=== PATIENT | male | born 1965 | race Caucasian/White ===

== ENCOUNTER 2020-01-09 08:10 | Outpatient (CLI) | payer BC, SELFPAY | END 2020-01-09 08:11 | disposition home or self-care (01) | PROVIDERS: PCP Internal Medicine | DX: K50.919 Crohn's disease, unspecified, with unspecified complications (principal); Z79.899 Other long term (current) drug therapy | CPT/HCPCS: 36415; 83993 ==

== ENCOUNTER 2020-02-15 10:31 | Emergency (ER) | payer OTHER, SELFPAY ==
--- NOTE | ~2020-02-15 | XR_ITS ---
EXAMINATION: XR shoulder LT min 2V INDICATION: Left shoulder pain TECHNIQUE: Four views of the left shoulder are submitted. COMPARISON: None FINDINGS: Normal alignment. No fracture. There is mild glenohumeral and acromioclavicular joint osteo arthritis. Soft tissues are unremarkable. IMPRESSION: No acute osseous abnormality. Reviewed, dictated and finalized at location B.
--- NOTE | ~2020-02-15 | XR_ITS ---
EXAMINATION: XR lumbar spine 2-3V DATE: 02/15/2020 11:31 INDICATION: Low back pain TECHNIQUE: Anteroposterior and lateral views of the lumbar spine, and cone-down lateral view of the l umbosacral junction were obtained. COMPARISON: CT, 11/26/2017 FINDINGS: There is chronic grade 1 anterolisthesis of L5 on S1 with bilateral L5 pars defects noted. There is moderate, chronic loss of intervertebral disc space height at L5-S1. The vertebral body heig hts are normal. There is no fracture. Small degenerative osteophytes project from the anterior endpla jacqueline of multiple vertebral bodies. IMPRESSION: 1. No acute findings. 2. Bilateral L5 pars defects with chronic grade 1 anterolisthesis of L5 on S1. Reviewed, dictated and finalized at location B.
[2020-02-15 10:35] VITALS: BP 138/86; PULSE 80; RESP 18; TEMP 37; O2SAT 98
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
--- NOTE | 2020-02-15 11:35 | PC.NURSE ---
report to CASSANDRA Moore.
== END 2020-02-15 12:21 | disposition home or self-care (01) ==
PROVIDERS: Emergency Provider Emergency Medicine
DX: T14.8XXA Other injury of unspecified body region, initial encounter (principal); S39.012A Strain of muscle, fascia and tendon of lower back, initial encounter; V89.2XXA Person injured in unspecified motor-vehicle accident, traffic, initial encounter
CPT/HCPCS: 72100; 73030; 99283; 99284

== ENCOUNTER 2020-04-09 08:25 | Outpatient (CLI) | payer OTHER, SELFPAY ==
--- NOTE | ~2020-04-09 | XR_ITS ---
EXAMINATION: XR lumbar spine 6V w bending DATE: 04/09/2020 08:49 INDICATION: Fascial strain of the lower back. TECHNIQUE: Anteroposterior, lateral in neutral, flexion and extension, and bilateral oblique views of the lumbar spine and cone-down AP and lateral views of the lumbosacral junction were obtained]. COMPARISON: Lumbar spine radiographs dated 02/15/[address] pelvis dated 11/26/2017 FINDINGS: L5 spondylolysis with bilateral chronic pars interarticularis defects and with 5 mm anterolisthesis L 5 on S1. The posterior margin of the L5 vertebral body is poorly visualized on the flexion and extens ion views but based upon the more well-defined anterior margin of the vertebral body the degree of an terolisthesis appears to increase to approximately 8-9 mm on both flexion and extension. 2 mm retroli sthesis L2 on L3 which is unchanged with flexion and increases to 3 mm with extension. Vertebral body heights are normal. Moderate disc height loss at L5-S1 and mild disc height loss at L2-L3. Multileve l mild lumbar facet osteoarthritis. IMPRESSION: 1. L5 spondylolysis with grade 1 anterolisthesis which increases slightly with both flexion and exten marcos. 2. Mild lumbar spondylosis. Reviewed, dictated and finalized at location A. IMPRESSION: 1. L5 spondylolysis with grade 1 anterolisthesis which increases slightly with both flexion and extension. 2. Mild lumbar spondylosis.
== END 2020-04-09 08:26 | disposition home or self-care (01) ==
LOC: CHSIMG 08:28
PROVIDERS: PCP Internal Medicine; Visit Provider Internal Medicine
DX: S39.012A Strain of muscle, fascia and tendon of lower back, initial encounter (principal)
CPT/HCPCS: 72114

== ENCOUNTER 2021-04-15 08:48 | Outpatient (CLI) | payer BC, SELFPAY ==
[2021-04-15 09:11] LABS: Creatinine Urine 71.35 mg/dL (40-278); MALB Creatinine Ratio 18.2 mg/g (0-30); Microalbumin Urine Random < 13.0 mg/L
[2021-04-15 09:32] LABS: Hemoglobin A1C 6.8 % (<5.7)
[2021-04-15 10:07] LABS: Cholesterol 154 mg/dL (0-200); HDL Direct 68 mg/dL (40-60); LDL Cholesterol Calculated 55 mg/dL (<130); Prostate Specific Antigen 0.3 ng/mL (< OR = 4.0); Thyroid Stimulating Hormone 1.28 uIU/mL (0.36-3.74); Triglycerides 156 mg/dL (0-150)
== END 2021-04-15 08:49 | disposition home or self-care (01) ==
PROVIDERS: PCP Physician Assistant; Visit Provider Physician Assistant
DX: E11.9 Type 2 diabetes mellitus without complications (principal); R53.83 Other fatigue; Z12.5 Encounter for screening for malignant neoplasm of prostate
CPT/HCPCS: 36415; 80061; 82043; 83036; 84153; 84443; G0103

== ENCOUNTER 2021-10-05 10:40 | Outpatient (CLI) | payer BC, SELFPAY ==
[2021-10-05 11:05] LABS: Hemoglobin A1C 6.9 % (<5.7)
[2021-10-09 17:24] LABS: Testosterone Total 162 ng/dL (250-1100)
== END 2021-10-05 10:41 | disposition home or self-care (01) ==
LOC: CHSLAB 10:42
PROVIDERS: PCP Physician Assistant; Visit Provider Physician Assistant
DX: E29.1 Testicular hypofunction (principal); E11.9 Type 2 diabetes mellitus without complications
CPT/HCPCS: 36415; 83036; 84402; 84403

== ENCOUNTER 2021-11-20 08:49 | Outpatient (CLI) | payer BC, SELFPAY ==
[2021-11-20 09:24] LABS: Hematocrit 45.1 % (40.0-54.0); Hemoglobin 14.9 g/dL (14.0-18.0)
[2021-11-22 11:22] LABS: Testosterone Total 124 ng/dL (250-1100)
[2021-11-23 08:07] LABS: FSH 8.4 mIU/mL (1.6-8.0); LH 3.4 mIU/mL (1.5-9.3); Prolactin 6.5 ng/mL (***)
[2021-11-24 13:16] LABS: Estradiol, Ultrasensitive 11 pg/mL (< OR = 29)
== END 2021-11-20 08:50 | disposition home or self-care (01) ==
LOC: CHSLAB 08:51
PROVIDERS: PCP Physician Assistant; Visit Provider Urology
DX: E29.1 Testicular hypofunction (principal)
CPT/HCPCS: 36415; 82670; 83001; 83002; 84146; 84403; 85014; 85018

== ENCOUNTER 2021-12-22 12:32 | Outpatient (CLI) | payer BC, SELFPAY ==
--- NOTE | ~2021-12-22 | MR_ITS ---
EXAMINATION: MR shoulder LT wo con DATE: 12/22/2021 13:35 INDICATION: Left shoulder pain. TECHNIQUE: Magnetic resonance imaging (MRI) of the left shoulder was performed without intravenous co ntrast. Sequences included axial PD-weighted FS FSE, coronal oblique PD-weighted FS FSE and T2-weight ed FS FSE, and sagittal oblique T2-weighted FS FSE and T1-weighted FSE. COMPARISON: Left shoulder radiographs 02/15/2020 FINDINGS: Coracoacromial arch: The acromion undersurface is curved in morphology (type II). There is severe acromioclavicular joint osteoarthritis. There is severe subacromial/subdeltoid bursitis. Rotator cuff: There is a full-thickness tear of supraspinatus and infraspinatus tendons measuring 4.5 cm anterior t o posterior by 5.0 cm proximal to distal. Teres minor tendon is normal. There is severe subscapularis tendinopathy. There is mild fatty atrophy of teres minor muscle belly. There is increased T2-weighte d signal intensity and teres minor muscle belly, consistent with subacute on chronic denervation. Biceps tendon and glenoid labrum: Biceps tendon is in bicipital groove. There is moderate intra-articular biceps tendinopathy. There is extensive tearing of the glenoid labrum. Fluid: There is a moderate-sized glenohumeral joint effusion. Bones/cartilage: There is posterior subluxation of humeral head with respect to glenoid. There is shallow partial-thic kness cartilage loss of humeral head and glenoid. IMPRESSION: 1. Massive full-thickness rotator cuff tear. 2. Mild glenohumeral joint chondrosis. 3. Severe acromioclavicular joint osteoarthritis. 4. Moderate intra-articular biceps tendinopathy. 5. Moderate-sized glenohumeral joint effusion and severe subacromial/subdeltoid bursitis. Reviewed, dictated and finalized at location A. 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
== END 2021-12-22 12:33 ==
PROVIDERS: Visit Provider Orthopaedic Surgery
DX: M19.012 Primary osteoarthritis, left shoulder (principal); M75.102 Unspecified rotator cuff tear or rupture of left shoulder, not specified as traumatic; M25.412 Effusion, left shoulder
CPT/HCPCS: 73221

== ENCOUNTER 2022-04-11 11:45 | Outpatient (CLI) | payer BC, SELFPAY ==
[2022-04-11 12:07] LABS: Basophils Absolute Auto 0.11 K/mm3 (0.00-0.10); Eosinophils Absolute Auto 0.44 K/mm3 (0.02-0.50); Hematocrit 41.5 % (40.0-54.0); Hemoglobin 13.4 g/dL (14.0-18.0); Immature Granulocyte Absolute 0.09 K/mm3 (0.00-0.00); Immature Granulocyte Percent A 0.8 % (0.0-0.0); Lymphocytes Absolute Auto 2.18 K/mm3 (1.10-4.50); Lymphocytes Percent Auto 19.7 % (18.0-42.0); Mean Corpuscular HGB Conc 32.3 g/dL (32.0-36.0); Mean Corpuscular Hemoglobin 30.2 pg (27.0-31.0); Mean Corpuscular Volume 93.5 fL (78.0-102.0); Mean Platelet Volume 10.1 fl (8.7-11.0); Monocytes Absolute Auto 0.64 K/mm3 (0.10-0.90); Monocytes Percent Auto 5.8 % (2.0-11.0); Neutrophils Absolute Auto 7.6 K/mm3 (1.7-7.2); Neutrophils Percent Auto 68.7 % (50.0-70.0); Platelet Count Result 327 K/mm3 (150-420); Red Blood Count 4.44 M/mm3 (4.70-6.10); Red Cell Distribution Width 13.2 % (11.6-14.4); White Blood Count 11.1 K/mm3 (4.8-10.8)
[2022-04-11 12:54] LABS: Alanine Aminotransferase 23 U/L (16-63); Albumin Level 3.1 g/dL (3.4-5.0); Alkaline Phosphatase 146 U/L (46-116); Anion Gap 6 mmol/L (8-16); Aspartate Amino Transferase 10 U/L (15-37); Bilirubin,Total 0.4 mg/dL (0.00-1.00); Blood Urea Nitrogen 21 mg/dL (7-18); CRP 3.2 mg/dL (0.0-0.9); Calcium 8.4 mg/dL (8.5-10.1); Carbon Dioxide 33 mmol/L (21-32); Chloride 97 mmol/L (98-108); Estimated Glomerular Filt Rate 58; Glucose 303 mg/dL (70-99); Osmolality Calculated 296 mOsm/kg (285-295); Potassium 3.7 mmol/L (3.5-5.1); Sodium 136 mmol/L (136-145); Total Protein 6.4 g/dL (6.4-8.2)
[2022-04-11 13:11] LABS: Erythrocyte Sedimentation Rate 12 mm/hr (0-20)
[2022-04-16 05:42] LABS: Prealbumin 24 mg/dL (21-43)
== END 2022-04-11 11:46 | disposition home or self-care (01) ==
LOC: CHSLAB 11:55
PROVIDERS: PCP Orthopaedic Surgery; Visit Provider Orthopaedic Surgery
DX: M54.16 Radiculopathy, lumbar region (principal)
CPT/HCPCS: 36415; 80053; 84134; 85025; 85652; 86140

== ENCOUNTER 2022-04-25 11:05 | Outpatient (CLI) | payer BC, SELFPAY ==
[2022-04-25 11:22] LABS: Basophils Absolute Auto 0.05 K/mm3 (0.00-0.10); Basophils Percent Auto 0.5 % (0.0-1.0); Eosinophils Absolute Auto 0.22 K/mm3 (0.02-0.50); Eosinophils Percent Auto 2.1 % (1.0-6.0); Hematocrit 41.6 % (40.0-54.0); Hemoglobin 13.6 g/dL (14.0-18.0); Immature Granulocyte Absolute 0.05 K/mm3 (0.00-0.00); Immature Granulocyte Percent A 0.5 % (0.0-0.0); Lymphocytes Absolute Auto 1.69 K/mm3 (1.10-4.50); Lymphocytes Percent Auto 16.2 % (18.0-42.0); Mean Corpuscular HGB Conc 32.7 g/dL (32.0-36.0); Mean Corpuscular Hemoglobin 30.1 pg (27.0-31.0); Mean Platelet Volume 10.1 fl (8.7-11.0); Monocytes Absolute Auto 0.77 K/mm3 (0.10-0.90); Monocytes Percent Auto 7.4 % (2.0-11.0); Neutrophils Absolute Auto 7.7 K/mm3 (1.7-7.2); Neutrophils Percent Auto 73.3 % (50.0-70.0); Platelet Count Result 200 K/mm3 (150-420); Red Blood Count 4.52 M/mm3 (4.70-6.10); Red Cell Distribution Width 13.5 % (11.6-14.4); White Blood Count 10.4 K/mm3 (4.8-10.8)
[2022-04-25 12:29] LABS: Erythrocyte Sedimentation Rate 32 mm/hr (0-20)
[2022-04-25 12:40] LABS: Alanine Aminotransferase 20 U/L (16-63); Albumin Level 3.1 g/dL (3.4-5.0); Alkaline Phosphatase 109 U/L (46-116); Anion Gap 7 mmol/L (8-16); Aspartate Amino Transferase < 10 U/L (15-37); Bilirubin,Total 1.4 mg/dL (0.00-1.00); Blood Urea Nitrogen 15 mg/dL (7-18); Calcium 8.8 mg/dL (8.5-10.1); Carbon Dioxide 31 mmol/L (21-32); Chloride 98 mmol/L (98-108); Estimated Glomerular Filt Rate 55; Glucose 220 mg/dL (70-99); Osmolality Calculated 289 mOsm/kg (285-295); Potassium 3.4 mmol/L (3.5-5.1); Sodium 136 mmol/L (136-145); Total Protein 6.5 g/dL (6.4-8.2)
[2022-04-25 12:43] LABS: CRP > 10.6 mg/dL (0.0-0.9)
[2022-04-27 10:56] LABS: Prealbumin 17 mg/dL (21-43)
== END 2022-04-25 11:06 | disposition home or self-care (01) ==
LOC: CHSLAB 11:10
PROVIDERS: PCP Physician Assistant
DX: M43.28 Fusion of spine, sacral and sacrococcygeal region (principal)
CPT/HCPCS: 36415; 80053; 84134; 85025; 85652; 86140

== ENCOUNTER 2022-12-28 10:46 | Outpatient (CLI) | payer OTHER, SELFPAY ==
[2022-12-28 11:12] LABS: Basophils Absolute Auto 0.06 K/mm3 (0.00-0.10); Basophils Percent Auto 0.8 % (0.0-1.0); Eosinophils Absolute Auto 0.09 K/mm3 (0.02-0.50); Eosinophils Percent Auto 1.1 % (1.0-6.0); Hematocrit 44.5 % (40.0-54.0); Immature Granulocyte Absolute 0.05 K/mm3 (0.00-0.00); Immature Granulocyte Percent A 0.6 % (0.0-0.0); Lymphocytes Absolute Auto 2.25 K/mm3 (1.10-4.50); Lymphocytes Percent Auto 28.4 % (18.0-42.0); Mean Corpuscular HGB Conc 33.7 g/dL (32.0-36.0); Mean Platelet Volume 11.4 fl (8.7-11.0); Monocytes Percent Auto 6.3 % (2.0-11.0); Neutrophils Percent Auto 62.8 % (50.0-70.0); Platelet Count Result 224 K/mm3 (150-420); Red Cell Distribution Width 13.3 % (11.6-14.4); White Blood Count 7.9 K/mm3 (4.8-10.8)
[2022-12-28 11:43] LABS: CRP < 0.5 mg/dL (0.0-0.9)
[2022-12-28 12:20] LABS: Erythrocyte Sedimentation Rate 1 mm/hr (0-20)
[2023-01-02 19:59] LABS: Prealbumin 29 mg/dL (21-43)
== END 2022-12-28 10:47 | disposition home or self-care (01) ==
LOC: CHSLAB 10:52
PROVIDERS: PCP Physician Assistant; Visit Provider Orthopaedic Surgery
DX: M43.26 Fusion of spine, lumbar region (principal)
CPT/HCPCS: 36415; 84134; 85025; 85652; 86140

== ENCOUNTER 2023-05-10 08:16 | Outpatient (CLI) | payer BC, SELFPAY ==
[2023-05-10 08:59] LABS: Creatinine Urine 252.29 mg/dL (40-278); MALB Creatinine Ratio 5.1 mg/g (0-30); Microalbumin Urine Random < 13.0 mg/L
[2023-05-10 09:02] LABS: Hemoglobin A1C 6.9 % (<5.7)
[2023-05-10 09:44] LABS: Alanine Aminotransferase 45 U/L (16-63); Albumin Level 3.9 g/dL (3.4-5.0); Alkaline Phosphatase 89 U/L (46-116); Anion Gap 11 mmol/L (8-16); Aspartate Amino Transferase 17 U/L (15-37); Bilirubin,Total 0.6 mg/dL (0.00-1.00); Blood Urea Nitrogen 21 mg/dL (7-18); Calcium 9.1 mg/dL (8.5-10.1); Carbon Dioxide 29 mmol/L (21-32); Chloride 102 mmol/L (98-108); Cholesterol 141 mg/dL (0-200); Estimated Glomerular Filt Rate > 60; Glucose 142 mg/dL (70-99); HDL Direct 67 mg/dL (40-60); LDL Cholesterol Calculated 46 mg/dL (<130); Osmolality Calculated 299 mOsm/kg (285-295); Potassium 4.2 mmol/L (3.5-5.1); Sodium 142 mmol/L (136-145); Total Protein 7.4 g/dL (6.4-8.2); Triglycerides 140 mg/dL (0-150)
[2023-05-10 09:48] LABS: Prostate Specific Antigen < 0.1 ng/mL (< OR = 4.0)
== END 2023-05-10 08:17 | disposition home or self-care (01) ==
LOC: CHSLAB 08:19
PROVIDERS: PCP Physician Assistant; Visit Provider Physician Assistant
DX: R53.83 Other fatigue (principal); Z12.5 Encounter for screening for malignant neoplasm of prostate; E11.9 Type 2 diabetes mellitus without complications
CPT/HCPCS: 36415; 80053; 80061; 82043; 83036; 84153; 84443; G0103

== ENCOUNTER 2023-07-24 12:17 | Outpatient (CLI) | payer BC, SELFPAY ==
[2023-07-24 13:15] LABS: SARS-CoV-2 RNA PCR Negative (Negative)
== END 2023-07-24 12:18 | disposition home or self-care (01) ==
PROVIDERS: PCP Physician Assistant; Visit Provider Physician Assistant
DX: R06.02 Shortness of breath (principal)
CPT/HCPCS: 87635

== ENCOUNTER 2023-12-04 11:44 | Outpatient (CLI) | payer BC, SELFPAY ==
--- NOTE | ~2023-12-04 | XR_ITS ---
Clinical Indication: Preoperative clearance PA and lateral views of the chest: Comparison: None Findings: The lungs are clear, without evidence of focal consolidation or pleural effusion. Cardiome diastinal silhouette is within normal limits. Bones and soft tissues are unremarkable. Impression: Normal chest. Reviewed, dictated and finalized at location . 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
--- NOTE | 2023-12-04 11:59 | ECG_ITS ---
Measurements Intervals [place] Rate: 70 P: 16 IN: 200 QRS: 48 QRSD: 125 T: 13 QT: 424 QTc: 460 Interpretive Statements SINUS RHYTHM BORDERLINE AV CONDUCTION DELAY RIGHT BUNDLE BRANCH BLOCK BASELINE WANDER- I, III, V3, V5-V6 ABNORMAL ECG NO PREVIOUS ECG AVAILABLE FOR COMPARISON Electronically Signed On 12-04-2023 12:19:23 CERTIFIED EMERGENCY VEHICLE TECHNICIAN by Steven Cruz D.O.
[2023-12-04 12:04] LABS: Basophils Absolute Auto 0.1 K/mm3 (0.0-0.1); Basophils Percent Auto 0.8 % (0.2-1.2); Eosinophils Absolute Auto 0.2 K/mm3 (0-0.3); Eosinophils Percent Auto 2.1 % (0-4.4); Hematocrit 44.5 % (42.0-52.0); Hemoglobin 14.7 g/dL (14.0-18.0); Immature Granulocyte Absolute 0.05 K/mm3 (0.00-0.031); Immature Granulocyte Percent A 0.6 % (0-0.5); Lymphocytes Absolute Auto 2.93 K/mm3 (0.9-3.2); Lymphocytes Percent Auto 33.4 % (18.3-44.2); Mean Corpuscular Hemoglobin 30.6 pg (26-34); Mean Corpuscular Volume 92.5 fl (80-100); Mean Platelet Volume 10.3 fl (7.4-10.4); Monocytes Absolute Auto 0.6 K/mm3 (0.1-0.6); Monocytes Percent Auto 6.5 % (2.6-8.5); Neutrophils Percent Auto 56.6 % (45.5-73.1); Platelet Count Result 218 k/mm3 (150-375); Red Blood Count 4.81 M/mm3 (4.6-6.20); Red Cell Distribution Width 13.9 % (11.5-14.5); White Blood Count 8.8 K/mm3 (4.5-10.0)
[2023-12-04 12:19] LABS: Hemoglobin A1C 8.1 % (<5.7)
[2023-12-04 12:35] LABS: Alanine Aminotransferase 27 U/L (6-50); Albumin Level 4.4 g/dL (3.5-5.1); Alkaline Phosphatase 45 U/L (38-126); Anion Gap 10 mmol/L (8-16); Aspartate Amino Transferase 23 U/L (17-59); Bilirubin,Total 0.7 mg/dL (0.2-1.3); Blood Urea Nitrogen 20 mg/dL (9-20); Calcium 8.9 mg/dL (8.4-10.2); Carbon Dioxide 28 mmol/L (22-30); Chloride 98 mmol/L (98-107); Estimated Glomerular Filt Rate > 60; Glucose 142 mg/dL (65-110); Potassium 3.8 mmol/L (3.4-5.0); Sodium 136 mmol/L (137-145)
== END 2023-12-04 11:45 | disposition home or self-care (01) ==
PROVIDERS: PCP Physician Assistant; Visit Provider Physician Assistant
DX: Z01.818 Encounter for other preprocedural examination (principal); I45.9 Conduction disorder, unspecified
CPT/HCPCS: 36415; 71046; 80053; 83036; 85025; 87081; 93005

== ENCOUNTER 2023-12-09 10:41 | Outpatient (CLI) | payer BC, SELFPAY ==
[2023-12-09 11:32] LABS: SARS-CoV-2 RNA PCR Negative (Negative)
[2023-12-09 11:35] LABS: Influenza A QL RT-PCR Positive (Negative); Influenza B QL RT-PCR Negative (Negative)
[2023-12-09 11:36] LABS: RSV RNA, RT-PCR Negative (Negative)
== END 2023-12-09 10:42 | disposition home or self-care (01) ==
LOC: CHSLAB 10:46
PROVIDERS: PCP Physician Assistant; Visit Provider Physician Assistant
DX: Z01.818 Encounter for other preprocedural examination (principal)
CPT/HCPCS: 87637

== ENCOUNTER 2024-01-21 09:02 | Outpatient (RCR) | payer OTHER, SELFPAY ==
[2024-01-21 09:00] VITALS: BP_SYST 90
--- NOTE | 2024-01-21 10:02 | OPREHPOC ---
Outpatient Therapy Plan of Care This is a Multidisciplinary Plan of Care that may contain components documented by all disciplines (PT, OT, and ST.) PT Problem 1 PT Problem #1 Knowledge Deficit PT Goal 1 Goal The patient will be independent in a home exercise program to continue after discharge from formal PT. Target Visit 24 PT Problem 2 PT Problem #2 Pain PT Goal 1 Goal The patient will report no greater than 2/10 left shoulder pain with daily activities. Target Visit 24 PT Problem 3 PT Problem #3 Impaired Range of Motion PT Goal 1 Goal The patient will demonstrate at least 140 degrees of left shoulder flexion to improve overhead reaching ability. Target Visit 24 PT Problem 4 PT Problem #4 Impaired Strength PT Goal 1 Goal The patient will demonstrate 4/5 left shoulder strength to lift and carry household items. Target Visit 24 PT Problem 5 PT Problem #5 Impaired Functional Mobil PT Goal 1 Goal The patient will self perceive less than 25% disability per the Quick DASH questionnaire. Target Visit 24
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
[2024-02-04 09:13] VITALS: BP_SYST 90
--- NOTE | 2024-02-04 09:58 | OPREHPOC ---
Outpatient Therapy Plan of Care This is a Multidisciplinary Plan of Care that may contain components documented by all disciplines (PT, OT, and ST.) PT Problem 1 PT Problem #1 Knowledge Deficit PT Goal 1 Goal The patient will be independent in a home exercise program to continue after discharge from formal PT. Target Visit 24 Progress Partially Met Comment Met to date, continue to progress PT Problem 2 PT Problem #2 Pain PT Goal 1 Goal The patient will report no greater than 2/10 left shoulder pain with daily activities. Target Visit 24 Progress Not Met Comment continue PT Problem 3 PT Problem #3 Impaired Range of Motion PT Goal 1 Goal The patient will demonstrate at least 140 degrees of left shoulder flexion to improve overhead reaching ability. Target Visit 24 Progress Not Met Comment Continue PT Problem 4 PT Problem #4 Impaired Strength PT Goal 1 Goal The patient will demonstrate 4/5 left shoulder strength to lift and carry household items. Target Visit 24 Progress Not Met Comment Continue PT Problem 5 PT Problem #5 Impaired Functional Mobil PT Goal 1 Goal The patient will self perceive less than 25% disability per the Quick DASH questionnaire. Target Visit 24 Progress Not Met Comment Continue
--- NOTE | 2024-02-04 09:58 | PTOPPROG ---
Assessment and note entered by Miroslava Martinez, PT Evaluation Information Assessment Status Progress Diagnosis s/p left reverse total shoulder arthroplasty Onset 12/16/23 Subjective Information Terence Leos reports his left shoulder is doing well overall. He does have increased pain today after trying to hold a nail with his left hand and hammering it with the right yesterday. He also reports he slept bad. Assessment PT Clinical Summary Terence Leos has completed 5 skilled PT visits since initiating PT following a right shoulder TSA performed on 12/16/23. He is reporting overall improvements in the shoulder and decreased pain however, he does have increased pain today after using it to hold a nail yesterday. He demonstrates good left shoulder AROM within restrictions and left shoulder PROM is easily to restrictions of flexion 100 degrees, abduction 90 degrees, and external rotation 30 degrees. He continues to have ROM limitations and strength limitations leading to inability to perform work tasks. He will continue to benefit from skilled PT to further address these limiations and progress as allowed by his physician. Plan of Care Interventions Electrical Stimulation,Hot Pack/Cold Pack,Patient/ Caregiver Educati,Therapeutic Exercise PT Services Indicated Yes Treatment Frequency and The patient has 3 visits left on his current Duration authorization. He will continue to benefit from skilled PT 2 times a week for 24 visits. These treatments will address the objective and functional deficits as defined above. The patient will be advanced safely and appropriately in order for the patient to progress towards his/her prior level of function. Additional exercises will be introduced and as well as a comprehensive home exercise program upon discharge, if needed, ?to ensure carryover of functional gains achieved in the clinic. This treatment plan has been reviewed and agreement upon by the patient.
[2024-02-13 09:10] VITALS: BP_SYST 90
--- NOTE | 2024-02-13 10:19 | OPREHPOC ---
Outpatient Therapy Plan of Care This is a Multidisciplinary Plan of Care that may contain components documented by all disciplines (PT, OT, and ST.) PT Problem 1 PT Problem #1 Knowledge Deficit PT Goal 1 Goal The patient will be independent in a home exercise program to continue after discharge from formal PT. Target Visit 24 Progress Partially Met Comment Met to date, continue to progress PT Problem 2 PT Problem #2 Pain PT Goal 1 Goal The patient will report no greater than 2/10 left shoulder pain with daily activities. Target Visit 24 Progress Not Met Comment continue PT Problem 3 PT Problem #3 Impaired Range of Motion PT Goal 1 Goal The patient will demonstrate at least 140 degrees of left shoulder flexion to improve overhead reaching ability. New goal: The patient will demonstrate 160 degrees of left shoulder flexion AROM. Target Visit 24 Progress Met Comment Continue PT Problem 4 PT Problem #4 Impaired Strength PT Goal 1 Goal The patient will demonstrate 4/5 left shoulder strength to lift and carry household items. Target Visit 24 Progress Not Met Comment Continue PT Problem 5 PT Problem #5 Impaired Functional Mobil PT Goal 1 Goal The patient will self perceive less than 25% disability per the Quick DASH questionnaire. The patient will demonstrate the ability to lift 50 # from floor to waist to return to job duties. Target Visit 24 Progress Not Met Comment Continue
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
--- NOTE | 2024-02-20 10:12 | PCPTNOTE ---
Cancelled session today. No auth from work comp yet.
[2024-03-10 09:15] VITALS: BP_SYST 130
--- NOTE | 2024-03-31 09:38 | PCPTNOTE ---
03/31/24: Pt cancelled today's PT for his left shoulder secondary to increased low back pain. -Miroslava Martinez, PT
--- NOTE | 2024-04-07 10:20 | PTOPPROG ---
Assessment and note entered by Miroslava Martinez, PT Evaluation Information Assessment Status Progress Diagnosis s/p L reverse total shoulder arthroplasty Onset 12/16/23 Subjective Information Terence Leos reports he will see his shoulder surgeon on 04/17/24. Assessment PT Clinical Summary Terence Leos will see Dr. De La Garza on 04/17/24. He is scheduled for PT on 04/09/24, 04/14/24, and 04/16/24 . He will be formally reassessed on 04/16/24. Plan of Care Interventions Electrical Stimulation,Hot Pack/Cold Pack,Manual Therapy,Neuro Re-education,Patient/Caregiver Educati,Therapeutic Activities,Therapeutic Exercise PT Services Indicated Yes Treatment Frequency and Continue per POC. Duration These treatments will address the objective and functional deficits as defined above. The patient will be advanced safely and appropriately in order for the patient to progress towards his/her prior level of function. Additional exercises will be introduced and as well as a comprehensive home exercise program upon discharge, if needed, ?to ensure carryover of functional gains achieved in the clinic. This treatment plan has been reviewed and agreement upon by the patient.
[2024-04-16 09:16] VITALS: BP_SYST 160
--- NOTE | 2024-04-16 10:28 | OPREHPOC ---
Outpatient Therapy Plan of Care This is a Multidisciplinary Plan of Care that may contain components documented by all disciplines (PT, OT, and ST.) PT Problem 1 PT Problem #1 Knowledge Deficit PT Goal 1 Goal The patient will be independent in a home exercise program to continue after discharge from formal PT. Target Visit 36 Progress Partially Met Comment Met to date, continue to progress PT Problem 2 PT Problem #2 Pain PT Goal 1 Goal The patient will report no greater than 2/10 left shoulder pain with daily activities. Target Visit 36 Progress Not Met Comment progressing towards, continue PT Problem 3 PT Problem #3 Impaired Range of Motion PT Goal 1 Goal The patient will demonstrate at least 140 degrees of left shoulder flexion to improve overhead reaching ability. New goal: The patient will demonstrate 160 degrees of left shoulder flexion AROM. Target Visit 36 Progress Not Met Comment Continue PT Problem 4 PT Problem #4 Impaired Strength PT Goal 1 Goal The patient will demonstrate 4/5 left shoulder strength to lift and carry household items. Target Visit 36 Progress Partially Met Comment Continue PT Problem 5 PT Problem #5 Impaired Functional Mobil PT Goal 1 Goal The patient will self perceive less than 25% disability per the Quick DASH questionnaire. -met The patient will demonstrate the ability to lift 50 # from floor to waist to return to job duties. -not met Target Visit 36 Progress Not Met Comment Continue
--- NOTE | 2024-04-16 10:28 | PTOPPROG ---
Assessment and note entered by Miroslava Martinez, PT Evaluation Information Assessment Status Progress Diagnosis s/p L reverse total shoulder arthroplasty Onset 12/16/23 Subjective Information Terence Leos reports his left shoulder is doing well. He notes minimal pain in the left shoulder unless he moves too far to the side and back together. He does note weakness with lifting overhead and out in front of him. He will see his shoulder surgeon on 04/17/24. He is scheduled to have a FCE on 04/22/24 that was ordered by his spine surgeon. Assessment PT Clinical Summary Terence Leos has completed 22 skilled PT visits for his left shoulder following a reverse total shoulder replacement performed on 12/16/23. He is reporting minimal pain unless overstretches or tries to lift too much. He notes weakness with lifting overhead and out in front of him. He objectively demonstrates steady improvements in left shoulder active and passive ROM as well as strength. He does still have deficits in left shoulder AROM and left shoulder strength. He will continue benefit from skilled PT to further address active ROM and strength. Plan of Care Interventions Electrical Stimulation,Hot Pack/Cold Pack,Manual Therapy,Neuro Re-education,Patient/Caregiver Educati,Therapeutic Activities,Therapeutic Exercise PT Services Indicated Yes Treatment Frequency and 2 times a week for 12 visits Duration These treatments will address the objective and functional deficits as defined above. The patient will be advanced safely and appropriately in order for the patient to progress towards his/her prior level of function. Additional exercises will be introduced and as well as a comprehensive home exercise program upon discharge, if needed, ?to ensure carryover of functional gains achieved in the clinic. This treatment plan has been reviewed and agreement upon by the patient.
== END 2024-04-16 09:29 | disposition still patient (30) ==
LOC: CHSPT 09:02
PROVIDERS: Visit Provider Orthopaedic Surgery
DX: Z47.1 Aftercare following joint replacement surgery (principal); Z96.612 Presence of left artificial shoulder joint
CPT/HCPCS: 97014; 97110; 97161; G0283

== ENCOUNTER 2024-04-21 09:31 | Outpatient (RCR) | payer OTHER, SELFPAY ==
[2024-04-21 09:30] VITALS: BP_SYST 160
--- NOTE | 2024-04-23 14:46 | PCPTNOTE ---
Patient was cancelled for scheduled appointment this date due to lack of insurance authorization. -Miroslava Martinez, PT
--- NOTE | 2024-04-29 16:53 | PCPTNOTE ---
I reviewed the License Pending Therapist's documentation and agree with the findings.
--- NOTE | 2024-05-01 15:32 | PCPTNOTE ---
I reviewed the License Pending Therapist's documentation and agree with the findings.
--- NOTE | 2024-05-07 15:04 | PCPTNOTE ---
I reviewed the License Pending Therapist's documentation and agree with the findings.
--- NOTE | 2024-05-14 17:09 | PCPTNOTE ---
I reviewed the License Pending Therapist's documentation and agree with the findings. -Miroslava Martinez, PT
--- NOTE | 2024-05-26 13:59 | OPREHPOC ---
Outpatient Therapy Plan of Care This is a Multidisciplinary Plan of Care that may contain components documented by all disciplines (PT, OT, and ST.) PT Problem 1 PT Problem #1 Knowledge Deficit PT Goal 1 Goal The patient will be independent in a home exercise program to continue after discharge from formal PT. Target Visit 36 Progress Met Comment . PT Problem 2 PT Problem #2 Pain PT Goal 1 Goal The patient will report no greater than 2/10 left shoulder pain with daily activities. Target Visit 36 Progress Met Comment . PT Problem 3 PT Problem #3 Impaired Range of Motion PT Goal 1 Goal The patient will demonstrate at least 140 degrees of left shoulder flexion to improve overhead reaching ability. met New goal: The patient will demonstrate 160 degrees of left shoulder flexion AROM. not met Target Visit 36 Progress Partially Met Comment . PT Problem 4 PT Problem #4 Impaired Strength PT Goal 1 Goal The patient will demonstrate 4/5 left shoulder strength to lift and carry household items. Target Visit 36 Progress Met Comment . PT Problem 5 PT Problem #5 Impaired Functional Mobil PT Goal 1 Goal The patient will self perceive less than 25% disability per the Quick DASH questionnaire. -met The patient will demonstrate the ability to lift 50 # from floor to waist to return to job duties. -not met Target Visit 36 Progress Met Comment .
--- NOTE | 2024-05-26 13:59 | PTOPDC ---
Assessment and note entered by JT File, PT Evaluation Information Assessment Status Discharge Diagnosis s/p L reverse total shoulder arthroplasty Onset 12/16/23 Subjective Information patient reports his shoulder feels great. he reports he is anticipating being DC'd from the surgeon to return to work tomorrow. 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 Reported Pain Level Pain Score 0: Self Report Assessment PT Clinical Summary mr. ribeiro presents to skilled PT for his 32nd skilled PT visit after reverse TSA of the L shoulder. he presents today having met all goals for skilled PT, except for 160 degrees active L shoulder flexion. however, he had functional mobility of the L shoulder in flexion to 145 degrees. he will likely be released to work, and reports he feels ready to do so after his MD follow up tomorrow. he will continue to build strength in the L shoulder as time progressed. he will be DC'd from skilled PT for the L shoulder today, and continue with HEP independent at home. Plan of Care PT Services Indicated Yes
== END 2024-05-26 13:22 | disposition home or self-care (01) ==
LOC: CHSPT 09:31
PROVIDERS: Referring Provider Orthopaedic Surgery; Visit Provider Orthopaedic Surgery
DX: Z47.1 Aftercare following joint replacement surgery (principal); M25.512 Pain in left shoulder
CPT/HCPCS: 97014; 97110; G0283

== ENCOUNTER 2024-04-28 15:23 | Outpatient (RCR) | payer OTHER, SELFPAY ==
--- NOTE | 2024-04-28 17:36 | OPREHPOC ---
Outpatient Therapy Plan of Care This is a Multidisciplinary Plan of Care that may contain components documented by all disciplines (PT, OT, and ST.) PT Problem 1 PT Problem #1 Knowledge Deficit PT Goal 1 Goal The patient will be independent in a home exercise program. Target Visit 4 PT Problem 2 PT Problem #2 Pain PT Goal 1 Goal 1. The patient will report no greater than 3/10 low back pain with work conditioning activities. Target Visit 12 PT Goal 2 Goal The patient will report no greater than 3/10 low back pain with return to full duty work. Target Visit 24 PT Problem 4 PT Problem #4 Impaired Functional Mobil PT Goal 1 Goal 1. The patient will demonstrate less than 30% self perceived disability per the Back Index questionnaire. 2. The patient will demonstrate the ability to lift 15# from floor to waist for 20 repetitions with 3/10 or less low back pain. 3. The patient will ambulate 1,200 feet during the 6 minute walk test with 3/10 or less low back pain. Target Visit 24 PT Problem 5 PT Problem #5 Impaired Strength PT Goal 1 Goal 1. The patient will demonstrate at least 4-/5 abdominal and lumbar extension strength to provide support to the spine. 2. The patient will demonstrate at least 4/5 hip extension and abduction strength to provide support for prolonged gait. Target Visit 24
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
--- NOTE | 2024-05-08 16:53 | PCPTNOTE ---
I reviewed the License Pending Therapist's documentation and agree with the findings.
--- NOTE | 2024-05-11 15:46 | PCPTNOTE ---
I reviewed the License Pending Therapist's documentation and agree with the findings.
--- NOTE | 2024-05-13 14:54 | OPREHPOC ---
Outpatient Therapy Plan of Care This is a Multidisciplinary Plan of Care that may contain components documented by all disciplines (PT, OT, and ST.) PT Problem 1 PT Problem #1 Knowledge Deficit PT Goal 1 Goal The patient will be independent in a home exercise program. -met Target Visit 4 Progress Met PT Problem 2 PT Problem #2 Pain PT Goal 1 Goal 1. The patient will report no greater than 3/10 low back pain with work conditioning activities. -met Target Visit 12 Progress Met PT Goal 2 Goal The patient will report no greater than 3/10 low back pain with return to full duty work. Target Visit 24 Progress Not Met PT Problem 4 PT Problem #4 Impaired Functional Mobil PT Goal 1 Goal 1. The patient will demonstrate less than 30% self perceived disability per the Back Index questionnaire. -met 2. The patient will demonstrate the ability to lift 15# from floor to waist for 20 repetitions with 3/10 or less low back pain. -met 3. The patient will ambulate 1,200 feet during the 6 minute walk test with 3/10 or less low back pain. -partially met (pain 0/10 and 900 feet completed) Target Visit 24 PT Problem 5 PT Problem #5 Impaired Strength PT Goal 1 Goal 1. The patient will demonstrate at least 4-/5 abdominal and lumbar extension strength to provide support to the spine. 2. The patient will demonstrate at least 4/5 hip extension and abduction strength to provide support for prolonged gait. Target Visit 24
--- NOTE | 2024-05-13 14:56 | OPREHPOC ---
Outpatient Therapy Plan of Care This is a Multidisciplinary Plan of Care that may contain components documented by all disciplines (PT, OT, and ST.) PT Problem 1 PT Problem #1 Knowledge Deficit PT Goal 1 Goal The patient will be independent in a home exercise program. -met Target Visit 4 Progress Met PT Problem 2 PT Problem #2 Pain PT Goal 1 Goal 1. The patient will report no greater than 3/10 low back pain with work conditioning activities. -met Target Visit 12 Progress Met PT Goal 2 Goal The patient will report no greater than 3/10 low back pain with return to full duty work. Target Visit 24 Progress Not Met PT Problem 4 PT Problem #4 Impaired Functional Mobil PT Goal 1 Goal 1. The patient will demonstrate less than 30% self perceived disability per the Back Index questionnaire. -met 2. The patient will demonstrate the ability to lift 15# from floor to waist for 20 repetitions with 3/10 or less low back pain. -met 3. The patient will ambulate 1,200 feet during the 6 minute walk test with 3/10 or less low back pain. -partially met (pain 0/10 and 900 feet completed) Target Visit 24 PT Problem 5 PT Problem #5 Impaired Strength PT Goal 1 Goal 1. The patient will demonstrate at least 4-/5 abdominal and lumbar extension strength to provide support to the spine. -not met 2. The patient will demonstrate at least 4/5 hip extension and abduction strength to provide support for prolonged gait. -met Target Visit 24 Progress Partially Met
--- NOTE | 2024-05-13 14:57 | PTOPPROG ---
Assessment and note entered by Miroslava Martinez, PT Evaluation Information Assessment Status Progress Diagnosis s/p lumbar fusion Onset 03/24/22; 03/30/22 Subjective Information Terence Leos reports that his back is getting better. He notes his back is getting looser but he still has pain. He notes less pain when he stands up from sitting. He has been working light duty for four hours a day. He has been doing light lifting and cleaning for work. He reports he has been very active with stuff around the house as well and has not had any increase in pain. He feels he may be ready to return to full duty work. He states his current full duty work through the summer would not require him to lift more than 20 lbs. He won't have to lift much weight until winter and that requires lifting 60-70 lbs from waist to shoulder height. He does not have to perform overhead lifting with normal full duty work. He feels he works harder coming to PT 2 days a week and work conditioning 3 days a week following light duty work for 4 hours. He is wanting to discontinue work conditioning and return to light duty work 8 hours a day. He does not follow up with Dr. Norton for his back until June and he will see Dr. De La Garza for his shoulder in early May. He is currently under a 15# lifting restriction per Dr. De La Garza and Dr. Norton. Assessment PT Clinical Summary Terence Leos has completed 7 work conditioning visits (6 following the evaluation). He is reporting less pain, improved endurance, and improved strength in his core since initiating work conditioning. He does still have pain with standing after prolonged sitting but this has improved as well. He has been working light duty for four hours a day and notes no increased pain with light duty work tasks. He objectively demonstrates improved lumbar AROM, less tenderness in the left thoracic paraspinals, improved core strength, improved bilateral hip strength, and improved endurance. He was able to complete 900 feet of ambulation during the 6 minute walk test without back pain elicited. He also competed 20 continuous repetitions of a 15# floor to waist lifts. He demonstrates good body mechanics with lift tests. He does still demonstrate decreased lumbar AROM, decreased core and hip strength, and decreased endurance. He will be following up with
--- NOTE | 2024-07-22 08:50 | PTOPDC ---
Assessment and note entered by Miroslava Martinez, PT Evaluation Information Assessment Status Discharge - Pt Not Presen Diagnosis s/p lumbar fusion Onset 03/24/22; 03/30/22 Subjective Information See progress note from 05/13/24. Assessment PT Clinical Summary See progress note from 05/13/24. No additional orders received so pt is discharged. Plan of Care PT Services Indicated No
== END 2024-05-13 14:20 | disposition home or self-care (01) ==
LOC: CHSPT 15:23
PROVIDERS: Visit Provider Orthopaedic Surgery
DX: M43.26 Fusion of spine, lumbar region (principal)
CPT/HCPCS: 97014; 97161; 97545; G0283

== ENCOUNTER 2024-08-28 10:00 | Outpatient (NON) | payer BC, SELFPAY ==
[2024-08-29 12:48] LABS: Alanine Aminotransferase 41 U/L (16-63); Albumin Level 3.8 g/dL (3.4-5.0); Alkaline Phosphatase 69 U/L (46-116); Anion Gap 10 mmol/L (4-12); Aspartate Amino Transferase 32 U/L (15-37); Basophils Absolute Auto 0.08 K/mm3 (0.00-0.10); Bilirubin,Total 0.7 mg/dL (0.00-1.00); Blood Urea Nitrogen 16 mg/dL (7-18); CRP < 0.5 mg/dL (0.0-0.9); Calcium 8.9 mg/dL (8.5-10.1); Carbon Dioxide 28 mmol/L (21-32); Chloride 102 mmol/L (98-108); Eosinophils Absolute Auto 0.16 K/mm3 (0.02-0.50); Estimated Glomerular Filt Rate > 60; Glucose 168 mg/dL (70-99); Hematocrit 47.8 % (40.0-54.0); Hemoglobin 15.1 g/dL (14.0-18.0); Immature Granulocyte Absolute 0.02 K/mm3 (0.00-0.00); Immature Granulocyte Percent A 0.3 % (0.0-0.0); Lymphocytes Absolute Auto 2.34 K/mm3 (1.10-4.50); Lymphocytes Percent Auto 29.3 % (18.0-42.0); Mean Corpuscular HGB Conc 31.6 g/dL (32-36); Mean Corpuscular Hemoglobin 30.2 pg (27.0-31.0); Mean Corpuscular Volume 95.6 fL (78.0-102.0); Mean Platelet Volume 11.5 fl (8.7-11.0); Monocytes Absolute Auto 0.45 K/mm3 (0.10-0.90); Monocytes Percent Auto 5.6 % (2.0-11.0); Neutrophils Absolute Auto 4.95 K/mm3 (1.70-7.20); Neutrophils Percent Auto 61.8 % (50.0-70.0); Osmolality Calculated 295 mOsm/kg (285-295); Platelet Count Result 248 K/mm3 (150-420); Red Cell Distribution Width 14.3 % (11.6-14.4); Sodium 140 mmol/L (136-145); Total Protein 6.5 g/dL (6.4-8.2)
== END 2024-08-28 10:01 | disposition home or self-care (01) ==
LOC: CHSLAB 09-02 14:49
PROVIDERS: Visit Provider Internal Medicine
DX: E78.5 Hyperlipidemia, unspecified (principal); E11.49 Type 2 diabetes mellitus with other diabetic neurological complication
CPT/HCPCS: 36415; 80053; 85025; 86140

== ENCOUNTER 2024-12-03 11:22 | Outpatient (CLI) | payer BC, SELFPAY ==
[2024-12-03 11:54] LABS: Basophils Absolute Auto 0.09 K/mm3 (0.00-0.10); Basophils Percent Auto 0.7 % (0.0-1.0); Eosinophils Absolute Auto 0.14 K/mm3 (0.02-0.50); Eosinophils Percent Auto 1.2 % (1.0-6.0); Hematocrit 47.1 % (40.0-54.0); Hemoglobin 14.9 g/dL (14.0-18.0); Immature Granulocyte Absolute 0.11 K/mm3 (0.00-0.00); Immature Granulocyte Percent A 0.9 % (0.0-0.0); Lymphocytes Absolute Auto 2.04 K/mm3 (1.10-4.50); Lymphocytes Percent Auto 16.8 % (18.0-42.0); Mean Corpuscular HGB Conc 31.6 g/dL (32-36); Mean Corpuscular Hemoglobin 28.1 pg (27.0-31.0); Mean Corpuscular Volume 88.9 fL (78.0-102.0); Mean Platelet Volume 10.3 fl (8.7-11.0); Monocytes Absolute Auto 0.68 K/mm3 (0.10-0.90); Monocytes Percent Auto 5.6 % (2.0-11.0); Neutrophils Absolute Auto 9.09 K/mm3 (1.70-7.20); Neutrophils Percent Auto 74.8 % (50.0-70.0); Platelet Count Result 254 K/mm3 (150-420); Red Cell Distribution Width 14.2 % (11.6-14.4); White Blood Count 12.2 K/mm3 (4.8-10.8)
[2024-12-03 12:46] LABS: Alanine Aminotransferase 35 U/L (16-63); Albumin Level 4.1 g/dL (3.4-5.0); Alkaline Phosphatase 62 U/L (46-116); Anion Gap 12 mmol/L (4-12); Aspartate Amino Transferase 20 U/L (15-37); Bilirubin,Total 0.8 mg/dL (0.00-1.00); Blood Urea Nitrogen 13 mg/dL (7-18); Calcium 8.9 mg/dL (8.5-10.1); Carbon Dioxide 28 mmol/L (21-32); Chloride 103 mmol/L (98-108); Estimated Glomerular Filt Rate 59; Glucose 116 mg/dL (70-99); Osmolality Calculated 297 mOsm/kg (285-295); Potassium 3.7 mmol/L (3.5-5.1); Sodium 143 mmol/L (136-145); Total Protein 6.6 g/dL (6.4-8.2)
[2024-12-03 13:03] LABS: CRP < 0.5 mg/dL (0.0-0.9)
[2024-12-04 08:09] LABS: Hepatitis B Surface Antigen NON-REACTIVE (NON-REACTIVE)
[2024-12-08 04:48] LABS: Testosterone Total 1443 ng/dL (250-1100)
[2024-12-08 14:03] LABS: NIL 0.02 IU/mL; Quantiferon TB Plus, 1T NEGATIVE (NEGATIVE)
== END 2024-12-03 11:23 | disposition home or self-care (01) ==
LOC: CHSLAB 11:28
PROVIDERS: PCP Internal Medicine; Visit Provider Internal Medicine Gastroenterology
DX: K50.113 Crohn's disease of large intestine with fistula (principal)
CPT/HCPCS: 36415; 80053; 84403; 85025; 86140; 86480; 87340

== ENCOUNTER 2025-06-18 08:30 | Outpatient (CLI) | payer BC, SELFPAY ==
--- OUTSIDE RECORDS SUMMARY | 2025-06-18 08:35 | XMS_ITS | Encounter Summary ---
Author Organization [facility] [employer] [facility] Address [address] [place] [address] Phone Care Team Providers Care Dental Cream Maker Name Role Phone Any Ramirez MD, Andrew Suarez Primary Care Provider Kathryn Arzate MD Unavailable [phone] Sid Turner MD Unavailable [phone] Victor M Real Primary Care Provider Fernando Amor MD Unavailable [phone] Vishal Martinez DO Primary Care Provider [phone] Encounter Details Date Type Department Care Team (Late st Contact Info) Description 05/29/2019 Orders Only [facility] Scanning, Provider Social History Tobacco Use Types Packs/Day Years Used Date Smoking Tobacco: Former Cigarettes 1 37 1 12/1979 - 10/2017 Smokeless Tobacco: Never Alcohol Use Standard Drinks/Week Comments Yes 14 (1 standard drink = 0.6 oz pu re alcohol) Sex and Gender Information Value Date Recorded Sex Assigned at Not on file 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 Gender Identity Male 08/04/2020 5:48 AM CDT Sexual Orientation Not on file documented as of this encounter Plan of Treatment Not on file documented as of this encounter Procedures Procedure Name Priority Date/Time Associated Diagnosis Comments SCAN - RADIOLOGY/IMAGING 05/29/2019 documented in this encounter Results * SCAN - RADIOLOGY/IMAGING (05/29/2019) Anatomical Region Laterality Modality Other us Provider Scanning Final Result documented in this encounter Visit Diagnoses Not on filedocumented in this encounter Care Teams Dental Cream Maker Relationship Specialty Start Date End Date Andrew Agarwal Jr., MD [address] [place] [address] PCP - General 04/05/17 03/13/22 Victor M Real PA [address] [place] [address] PCP - General Physician Floor Assembler 03/14/22 11/29/24 Vishal Martinez DO [address] [place] [address] PCP - General Internal Medicine 11/30/24 [place] [id number] [facility] [address] [place] [address] Inclusion Manager Gastroenterology 06/19/18 [place] [id number] [address] [facility] [address] [place] [address] Inclusion Manager Gastroenterology 06/19/18 Fernando Amor MD [address] [facility] [phone] [place] [address] Surgeon Colon and Rectal Surgery 01/10/24 documented as of this encounter
--- OUTSIDE RECORDS SUMMARY | 2025-06-18 08:35 | XMS_ITS | Clinical Summary ---
Author Organization [facility] Address [address] [place] [address] Care Team Providers Care Arc And Gas Welder Name Role Phone Victor M Real PA-C Primary Care Provide r Source Comments [facility],non-owned Affiliates and Associated Physician Practices is amultiple site organization consisting of ambulatory clinics and hospital sitesin [place], [place], [place] and [place]. This disclosure is being madepursuant to the Care Everywhere program and may not contain all information available regarding this patient. Last updated 18.[facility] Allergies No known active allergies Medications * Be aware that medications may not be up to date on this document. Alwaysverify current medications with the patient. atorvastatin (LIPITOR) 40 MG tablet Take 40 mg by mouth at bedtime Active nebivolol (BYSTOLIC) 10 MG tablet Take 10 mg by mouth once daily Active montelukast (SINGULAIR) 10 MG tablet Take 10 mg by mouth once daily Active Other Levocetrizine 5 mg qd po Active VITAMIN D PO Take 50,000 Units by mouth 2 x week, and saturday Active escitalopram (LEXAPRO) 20 MG tablet Take 20 mg by mouth once daily Active inFLIXimab (REMICADE IV) 10 mg by Intravenous route Every 2 months Active Exenatide (BYDUREON SC) 1 injection weekly, Saturday evenings Active tamsulosin (FLOMAX) 0.4 MG capsule Take 0.4 mg by mouth once daily At the same time every day after a meal. Active oxyCODONE-acet aminophen (PERCOCET) 10-325 MG tablet Take 1 (one) tablet by mouth every 6 hours as needed for Pain 12 tablet 2 Active ceFAZolin Sodium-Dextros e (ANCEF) 2-3 GM-%(50ML) IVPB 2,000 (two thousand) mg by Intravenous route every 6 hours 2 Active metroNIDAZOLE 500 MG/100 ML 500 mg IVPB 100 mL by Intravenous route every 8 hours 2 Active vancomycin (VANCOCIN) 2000 mg IVPB 540 mL by Intravenous route every 12 hours 2 Active cyclobenzaprin e (FLEXERIL) 10 MG tablet Take 1 (one) tablet by mouth every 8 hours as needed for Muscle Spasms 30 tablet 2 Active Active Problems Problem Noted Date Diagnosed Date Immunocompromised 05/02/2022 H/O Crohn's disease 05/02/2022 Type 2 diabetes mellitus wit h hyperglycemia, without long-term current use of insulin 05/02/2022 Draining postoperative wound 05/01/2022 Assessment & Plan (05/02/2022 1:24 AM CDT): . Hyponatremia 05/01/2022 Assessment & Plan (05/02/2022 1:24 AM CDT): . Hypokalemia 05/01/2022 Assessment & Plan (05/02/2022 1:24 AM CDT): . FAB (acute kidney injury) 05/01/2022 Leukocytosis 05/01/2022 Assessment & Plan (05/02/2022 1:24 AM CDT): . Sepsis 05/01/2022 Assessment & Plan (05/02/2022 1:24 AM CDT): . Lumbar spondylolysis 03/23/2022 DDD (degenerative disc disease), lumbosacral Family History Medical History Relation Name Comments Arthritis - Osteo Mother Hypertension Mother Relation Name Status Comments Mother Social History Tobacco Use Types Packs/Day Years Used Date Smoking Tobacco: Former Cigarettes 1 25 1 - 2016 Smokeless Tobacco: Never Alcohol Use Standard Drinks/Week Comments Yes 28 (1 standard drink = 0.6 oz pu re alcohol) AUDIT-C Answer Date Recorded Q1: How often do you have a drink containing alcohol? Never 05/01/2022 Q2: How many drinks containi ng alcohol do you have on a typical day when you are drinking? Patient does not drink 2 Q3: How often do you have si x or more drinks on one occasion? Never 05/01/2022 Hunger Vital Sign Answer Date Recorded Within the past 12 months, y ou worried that your food would run out before you got the money to buy more. Never true 05/02/20 22 Within the past 12 months, t he food you bought just didn't last and you didn't have money to get more. 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 Gender Identity Not on file Sexual Orientation Not on file Last Filed Vital Signs Vital Sign Reading Time Taken Comments Blood Pressure 147/83 05/23/2022 11:49 AM CDT Pulse 46 05/23/2022 11:49 AM CDT Temperature 36.8 C (98.2 F) 05/23/2022 11:49 AM CDT Respiratory Rate 18 05/23/2022 11:49 AM CDT Oxygen Saturation 93% 05/23/2022 11:49 AM CDT Inhaled Oxygen Concentration 30% 05/03/2022 3 :16 AM CDT Weight 156 kg (343 lb 14.4 oz) 05/10/2022 2:01 P M CDT Height 177.8 cm (5' 10) 05/08/2022 2:04 PM CDT Body Mass Index 49.34 05/08/2022 2:04 PM CDT Plan of Treatment Health Maintenance Due Date Last Done Comments COLOGUARD (AGES 45-75) - COLON CA SCREENING 1963 COLON MONITORING 1963 COLONOSCOPY - COLON CA SCREENING 1963 CT COLONOGRAPHY - COLON CA SCREENING 1963 Colorectal Cancer Screening 1963 FIT - COLON CA SCREENING 1963 FLEX SIG - COLON CA SCREENING 1963 HIV SCREENING 1978 HEPATITIS C SCREENING 06/20/1981 DTAP/TDAP/TD VACCINES (1 - Tdap) 1982 PNEUMOCOCCAL VACCINE 50+ (1 of 2 - PCV) 1982 ZOSTER VACCINE (1 of 2) 1982 LUNG CANCER SCREENING 2013 DIABETES RETINOPATHY SCREENING 05/02/2022 DIABETES-FOOT EXAM WITH MONOFILAMENT 05/02/2022 DIABETES-HGB A1C 08/02/2022 05/02/2022 DIABETES-SERUM CREATININE 05/23/20232021, 05/22/2022, 05/20/2022, Additional history exists Respiratory Syncytial Virus (RSV) Vaccine Pt: or over 60 yrs (1 - Risk 60-74 years 1-dose series) 2023 COVID-19 VACCINE ( - season) 2024 12/15/2021, 01/30/2021 DEPRESSION SCREENING 11/25/2024 DIABETES - URINE PROTEIN SCREENING 11/25/2024 INFLUENZA VACCINE (#1) 2025 9, 09/04/2018, 09/06/2016 HEPATITIS B VACCINE Aged Out No longe r eligible based on patient's age to complete this topic HIB VACCINE Aged Out No longer eligi ble based on patient's age to complete this topic HPV VACCINE Aged Out No longer eligi ble based on patient's age to complete this topic MENINGOCOCCAL (Group B) VACCINE SHARED DECISION-MAKING Aged Out No longer eligible based on patient's age to complete this topic MENINGOCOCCAL GROUPS A/C/Y/W VACCINE Aged Out No longer eligible based on patient's age to complete this topic Medical Devices Implanted Type Area Foam Tank Laminator Device Identifier Shelf Expiration Date Model / Serial / Lot Graft Bone Infs Rhbmp-2 Bvn Clgn Lg 8ml Implanted:Qty : 2 on 03/23/2022 by Weston Norton MD at [facility] N/A: Spine Lumbar [employer] Inc 07/26/2023 [id number] / / [id number] Graft Bone Canc 30ml Crsh Chp Frzn Implanted:Qty : 1 on 03/23/2022 by Weston Norton MD at [facility] N/A: Spine Lumbar [employer] 05/25/2025 [id number] / Graft Bone Canc 30ml Crsh Chp Frzn Implanted:Qty : 1 on 03/23/2022 by Weston Norton MD at [facility] N/A: Spine Lumbar [employer] 05/24/2025 [id number] / / [id number] Cage Spnl Grn [id number] 16mm Ltcg Ti Lmbr Implanted:Qty : 2 on 03/23/2022 by Weston Norton MD at [facility] N/A: Spine Lumbar [employer] 06/16/2022 [id number] / / [id number] Cage Spnl 26mm 14mm Ltcg Lmbr Tpr Fsn Implanted:Qty : 2 on 03/23/2022 by Weston Norton MD at [facility] N/A: Spine Lumbar [employer] Inc [id number] / / Graft Bone Canc 30ml Crsh Chp Frzn Implanted:Qty : 1 on 03/30/2022 by Weston Norton MD at [facility] N/A: Spine Lumbar [employer] 03/26/2025 [id number] / / [id number] Screw 5.5/6 Baird Mas 8.5x40 Implanted:Qty : 1 on 03/30/2022 by Weston Norton MD at [facility] N/A: Spine Lumbar [employer] 02/17/2023 [id number] / / [id number] Screw 5.5/6 Baird Mas 8.5x40 Implanted:Qty : 1 on 03/30/2022 by Weston Norton MD at [facility] N/A: Spine Lumbar [employer] 06/05/2023 [id number] / / [id number] Screw 7.5mm 45mm Ma Spne Solera Cd Hzn Implanted:Qty : 1 on 03/30/2022 by Weston Norton MD at [facility] N/A: Spine Lumbar [employer] 03/24/2025 [id number] / / [id number] Screw 7.5mm 45mm Ma Spne Solera Cd Hzn Implanted:Qty : 1 on 03/30/2022 by Weston Norton MD at [facility] N/A: Spine Lumbar [employer] 02/28/2027 [id number] / / [id number] Screw 7.5mm 50mm Ma Spne Solera Cd Hzn Implanted:Qty : 1 on 03/30/2022 by Weston Norton MD at [facility] N/A: Spine Lumbar [employer] 12/13/2026 [id number] / / [id number] Screw 7.5mm 50mm Ma Spne Solera Cd Hzn Implanted:Qty : 1 on 03/30/2022 by Weston Norton MD at [facility] N/A: Spine Lumbar [employer] 04/08/2025 [id number] / / [id number] Screw Set Ti Spnl Brk Off Cd Hzn Nonster Implanted:Qty : 6 on 03/30/2022 by Weston Norton MD at [facility] N/A: Spine Lumbar [employer] Inc [id number] / / Torrey Spnl 70mm 5.5mm Cd Hzn Crv Cocrmo Implanted:Qty : 2 on 03/30/2022 by Weston Norton MD at [facility] N/A: Spine Lumbar [employer] Inc [id number] / / Graft Tissue Drgn + Bvn Clgn Mtrx 3x3in Implanted:Qty : 1 on 03/30/2022 by Weston Norton MD at [facility] N/A: Spine Lumbar [employer] 04/24/2024 [id number] / / [id number] Floseal Hemostatic Matrix Implanted:Qty : 2 on 03/30/2022 by Weston Norton MD at [facility] N/A: Spine Lumbar 01/14/2023 [id number] / / [id number] Kit Bngf 26mm 18mm Infs Lg Spne Rhbmp-2 Implanted:Qty : 2 on 03/30/2022 by Weston Norton MD at [facility] N/A: Spine Lumbar [employer] 07/25/2023 [id number] / / [id number] Marco Antonio Bone Void 10cc 20cc Ca Slf Stimulan Implanted:Qty : 1 on 03/30/2022 by Weston Norton MD at [facility] N/A: Spine Lumbar [employer] 04/24/2024 [id number] / / [id number] Fibrin Sealant Tisseel Implanted:Qty : 1 on 03/30/2022 by Weston Norton MD at [facility] N/A: Spine Lumbar [employer] 09/24/2023 [id number] / / [id number] Graft Bone Grftn Dbm Strp [id number] - [id number] Implanted:Qty : 1 on 03/30/2022 by Weston Norton MD at [facility] N/A: Spine Lumbar [employer] 02/20/2025 [id number] / [id number] / Procedures Procedure Name Priority Date/Time Associated Diagnosis Comments COMPREHENSIVE METABOLIC PANEL AM Draw 05/23/2022 4:16 AM CDT HEMOGLOBIN A1C Routine 05/02/2022 2:38 AM CDT from Last 3 Months or Most Recently Relevant to Health Maintenance Results * (ABNORMAL) COMPREHENSIVE METABOLIC PANEL (05/23/2022 4:16 AM CDT) [facility] Glucose 91 70 - 105 mg/dL 05/23/2022 4:38 AM CDT [facility] Sodium 140 136 - 145 mmol/L 05/23/2022 4:38 AM CDT [facility] Potassium 3.4(L) 3.5 - 5.1 mmol/L 05/23/2022 4:38 AM CDT [facility] Chloride 105 98 - 107 mmol/L 05/23/2022 4:38 AM CDT [facility] CO2 27 23 - 31 mmol/L 05/23/2022 4:38 AM CDT [facility] Calcium 8.3(L) 8.4 - 10.4 mg/dL 05/23/2022 4:38 AM [facility] Anion Gap 8 8 - 18 mmol/L 05/23/2022 4:38 AM [facility] BUN 6(L) 8.4 - 25.7 mg/dL 05/23/2022 4:38 AM [facility] Creatinine 0.71(L) 0.72 - 1.25 mg/dL 05/23/2022 4:38 AM [facility] Alkaline Phosphatase 108 40 - 150 U/L 05/23/2022 4:38 AM [facility] ALT 7 0 - 61 U/L 05/23/2022 4:38 AM [facility] AST 13 5 - 34 U/L 05/23/2022 4:38 AM [facility] Protein Total 6.0(L) 6.4 - 8.3 gm/dL 05/23/2022 4:38 AM [facility] Albumin 2.6(L) 3.5 - 5.2 gm/dL 05/23/2022 4:38 AM [facility] Bilirubin Total 0.4 0.2 - 1.2 mg/dL 05/23/2022 4:38 AM [facility] eGFR by CKD-EPI >90 >=90 mL/min/1.7 3 m2 05/23/2022 4:38 AM [facility] Blood BLOOD SPECIMEN / Unknown Venipuncture / Unknown 05/23/2022 4:16 AM CDT 05/23/2022 4:20 AM T us Tree Oliveros MD LAB - CHEMISTRY ORDERABLES Fi nal Result [facility] [address] [id number] * (ABNORMAL) HEMOGLOBIN A1C (05/02/2022 2:38 AM CDT) Hemoglobin A1c 8.6(H) 4.2 - 5.6 % 05/02/2022 5:26 AM [facility] Estimated Average Glucose 200 mg/dL 05/02/2022 5:26 AM CDT [facility] Blood BLOOD SPECIMEN / Unknown Lab Venipuncture / Unknown 05/02/2022 2:38 AM CDT 05/02/2022 3:37 AM CDT Narrative [facility] - 05/02/2022 5:26 AM CDT The following cutoff levels are recommended by [place] [employer]. A1c > 6.5% : considered as diabetes if two separate tests >6.5% or in an appropriate clinical setting. A1c 5.7% - 6.4% : considered as prediabetes (suggest increased risk for diabetes and cardiovascular disease) Control target level: Should be individualized. < 7 for general (non-) , < 8% less stringent goal, < 6.5 more stringent goal. Hemoglobin A1c measurements are used as an aid in the diagnosis of diabetic mellitus, as an aid to identify patients who may be at the risk for developing diabetic mellitus, and for the monitoring long-term blood glucose control in individuals with diabetes mellitus. This test should not replace glucose testing for patients with Type 1 diabetes, pediatric patients, or women. Falsely low HbA1c results may be observed in patients with clinical conditions that shorten erythrocyte life span or decrease mean erythrocyte age such as the presence of unstable hemoglobin variants, elevated hemoglobin F level or other causes of hemolytic anemia . HbA1c may not accurately reflect glycemic control when clinical conditions that affect erythrocyte survival are present. Severe Iron deficiency anemia may yield falsely high results. Hemoglobin A1c assay should not be used to diagnose or monitor diabetes in patients with malignancy, recent blood transfusion, chronic kidney or liver disease. This method may yield falsely low results when hemoglobin (HbF) exceeds 5% in the specimen. us Hudson Forman MD LAB - CHEMISTRY ORDERABLES Fi nal Result [facility] [address] [id number] from Last 3 Months or Most Recently Relevant to Health Maintenance Insurance [facility] * Guarantor: [id number] Account Type Relation to Patient Date of Phone Billing Address Workers Comp Employer [employer] [address] [employer] Advance Directives * Full Code (Latest Code Status on File) Date Activated Date Inactivated Comments 05/02/2022 1:40 AM 05/23/2022 2:15 PM * Full Code Date Activated Date Inactivated Comments 03/30/2022 5:34 PM 03/31/2022 6:55 PM * Full Code Date Activated Date Inactivated Comments 03/23/2022 4:03 PM 03/25/2022 3:22 PM Care Teams Arc And Gas Welder Relationship Specialty Start Date End Date Victor M Real PA-C [address] [place] [address] PCP - General Physician Body Shop Floorperson 05/01/22
--- OUTSIDE RECORDS SUMMARY | 2025-06-18 08:35 | XMS_ITS | Encounter Summary ---
Author Organization [facility] Address [address] [place] [address] Phone Care Team Providers Care Liquid Compounder Name Role Phone Any Ramirez MD, Andrew Suarez Primary Care Provider Kathryn Arzate MD Unavailable [phone] Sid Turner MD Unavailable [phone] Victor M Real Primary Care Provider Fernando Amor MD Unavailable [phone] Vishal Martinez DO Primary Care Provider Encounter Details Date Type Department Care Team (Late st Contact Info) Description 04/28/2019 Orders Only [facility] Scanning, Provider Social History Tobacco Use Types Packs/Day Years Used Date Smoking Tobacco: Former Cigarettes 1 37 1 12/1979 - 10/2017 Smokeless Tobacco: Never Alcohol Use Standard Drinks/Week Comments Yes 14 (1 standard drink = 0.6 oz pu re alcohol) Sex and Gender Information Value Date Recorded Sex Assigned at Not on file 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 Gender Identity Male 08/04/2020 5:48 AM CDT Sexual Orientation Not on file documented as of this encounter Plan of Treatment Not on file documented as of this encounter Procedures Procedure Name Priority Date/Time Associated Diagnosis Comments SCAN - LABS 04/28/2019 documented in this encounter Results * SCAN - LABS (04/28/2019) us Provider Scanning Final Result documented in this encounter Visit Diagnoses Not on filedocumented in this encounter Care Teams Liquid Compounder Relationship Specialty Start Date End Date Andrew Agarwal Jr., MD [address] [place] [address] PCP - General 04/05/17 03/13/22 Victor M Real PA [address] [facility] [address] [place] [address] PCP - General Physician Anode Rebuilder 03/14/22 11/29/24 Vishal Martinez DO [address] [facility] [address] [place] [address] PCP - General Internal Medicine 11/30/24 [place] [address] [address] Fiberglass Technician Gastroenterology 06/19/18 [place] [address] [address] Fiberglass Technician Gastroenterology 06/19/18 Fernando Amor MD [address] [facility] [id number] [place] [address] Surgeon Colon and Rectal Surgery 01/10/24 documented as of this encounter
--- OUTSIDE RECORDS SUMMARY | 2025-06-18 08:35 | XMS_ITS | Clinical Summary ---
Author Organization [facility] Address [address] [place] [address] Care Team Providers Care Conductor Sleeping [employer] Name Role Phone Kathryn Arzate MD Unavailable [phone] Sid Turner MD Unavailable [phone] Fernando Amor MD Unavailable [phone] Vishal Martinez DO Primary Care Provider [phone] Allergies No known active allergies Medications LYRICA 150 mg capsuleIndicat ions:Postherpe tic Neuralgia Take 200 mg by mouth nightly 1 04/07/20 18 Active triamterene-hy droCHLOROthiaz ruben (MAXZIDE,DYAZI DE) 75-50 mg per tabletIndicati ons:Edema,hype rtension Take 1 tablet by mouth every morning Active montelukast (SINGULAIR) 10 mg tabletIndicati ons:Seasonal Allergic Rhinitis Take 1 tablet (10 mg total) by mouth nightly Active ALPRAZolam (XANAX) 0.5 mg tabletIndicati ons:anxiety Take 1 tablet (0.5 mg total) by mouth nightly Active levocetirizine (XYZAL) 5 mg tabletIndicati ons:Allergic Rhinitis Take 1 tablet (5 mg total) by mouth every morning Active nebivoloL (BYSTOLIC) 10 mg tabletIndicati ons:hypertensi on Take 1 tablet (10 mg total) by mouth every morning Active ergocalciferol (VITAMIN D) 50,000 unit capsuleIndicat ions:Vitamin D Deficiency Take 1 capsule (50,000 Units total) by mouth 2 (two) times a week Saturday and saturday Active traMADol (ULTRAM) 50 mg tabletIndicati ons:Pain Take 1 tablet (50 mg total) by mouth every 6 (six) hours as needed for pain 2 04/22/20 18 Active tadalafil (CIALIS) 5 mg tabletIndicati ons:benign prostatic hyperplasia with lower urinary tract sx Take 1 tablet (5 mg total) by mouth every morning Active atorvastatin (LIPITOR) 40 mg tabletIndicati ons:hyperlipid emia Take 1 tablet (40 mg total) by mouth every morning Active diphenoxylate- atropine (LOMOTIL) 2.5-0.025 mg per tabletIndicati ons:diarrhea Take 1 tablet by mouth 2 (two) times a day as needed for diarrhea 180 tablet 1 01/06/20 21 Active Additional Information Patient taking differently: 2 tabletoral3 times daily, Indications: diarrhea, Informant: Self, Reported on 01/23/2024 multivitamin capsuleIndicat ions:Vitamin Deficiency Take 1 capsule by mouth every morning Active celecoxib (CeleBREX) 200 mg capsuleIndicat ions:Osteoarth ritis Take 1 capsule (200 mg total) by mouth nightly Active finasteride (PROSCAR) 5 mg tabletIndicati ons:benign prostatic hyperplasia with lower urinary tract sx Take 1 tablet (5 mg total) by mouth every morning Active tamsulosin (FLOMAX) 0.4 mg extended release capsuleIndicat ions:benign prostatic hyperplasia with lower urinary tract sx Take 1 capsule (0.4 mg total) by mouth every morning Active fluticasone propionate (FLONASE) 50 mcg/actuation nasal sprayIndicatio ns:Allergic Rhinitis Administer 1 spray into each nostril 2 (two) times a day as needed for rhinitis Active magnesium oxide/magnesiu m (MAGNESIUM, OXIDE/AA CHELATE, ORAL)Indicatio ns:supplement Take 500 mg by mouth daily. Indications: supplement Active albuterol HFA (PROVENTIL HFA,VENTOLIN HFA,PROAIR HFA) 90 mcg/actuation inhalerIndicat ions:Bronchosp asm Prevention Inhale 2 puffs every 4 (four) hours as needed for shortness of breath Active pantoprazole DR (PROTONIX) 40 mg EC tabletIndicati ons:GI Bleed Take 1 tablet (40 mg total) by mouth daily Active inFLIXimab (REMICADE) 100 mg injectionIndic ations:Crohn's Disease Infuse 1 mL (10 mg total) into a venous catheter Every 2 months Active escitalopram (LEXAPRO) 20 mg tabletIndicati ons:Anxiety with Depression Take 1 tablet (20 mg total) by mouth nightly Active metaxalone (SKELAXIN) 800 mg tablet Take 1 tablet (800 mg total) by mouth 3 (three) times a day as needed for muscle spasms 0 11/28/19 23 Active semaglutide 0.25 mg or 0.5 mg (2 mg/3 mL) pen injector injectionIndic ations:Weight Loss Management for Obese Patient (BMI >= 30),type 2 diabetes mellitus Inject 0.5 mg under the skin every 7 days Saturday AM Active oxyCODONE-acet aminophen (PERCOCET) 10-325 mg per tabletIndicati ons:Pain,shoul darryl surgery Take 1 tablet by mouth every 4 (four) hours as needed for pain Active loperamide (IMODIUM) 2 mg capsuleIndicat ions:diarrhea TAKE 2 CAPSULES BY MOUTH THREE TIMES A DAY 540 capsule 02/10/20 24 Active acetaminophen (TYLENOL) 500 mg tablet Take 2 tablets (1,000 mg total) by mouth every 8 (eight) hours 60 tablet 02/10/20 24 Active oxyCODONE (ROXICODONE) 5 mg immediate release tabletIndicati ons:Pain Take 1-2 tablets (5-10 mg total) by mouth every 4 (four) hours as needed for pain 10 tablet 02/10/20 24 Active docusate sodium (COLACE) 100 mg capsuleIndicat ions:constipat ion Take 1 capsule (100 mg total) by mouth 2 (two) times a day with a glass of water 60 capsule 02/10/20 24 Active diclofenac sodium 3 % gel as needed 03/03/20 24 Active HYDROcodone-ac etaminophen (NORCO) 10-325 mg per tablet as needed 0 01/21/20 24 Active cyclobenzaprin e (FLEXERIL) 7.5 mg tablet Take 1 tablet (7.5 mg total) by mouth 3 (three) times a day as needed 02/03/20 24 Active doxycycline (PERIOSTAT) 20 mg tablet 05/27/20 24 Active colestipoL (COLESTID) 1 gram tabletIndicati ons:Diarrhea, unspecified type TAKE 2 TABLETS 3 TIMES A DAY 540 tablet 3 06/07/20 25 Active insulin lispro (HumaLOG, ADMELOG) 100 unit/mL vial for injection Inject under the skin 022 Discontinued(O ther) colestipoL (COLESTID) 1 gram tabletIndicati ons:Diarrhea, unspecified type Take 2 tablets (2 g total) by mouth 3 (three) times a day 540 tablet 3 07/03/20 24 025 Discontinued Active Problems Problem Noted Date Diagnosed Date Wound dehiscence 06/04/2022 Type 2 diabetes mellitus wit h hyperglycemia, without long-term current use of insulin 05/02/2022 Immunocompromised 05/02/2022 Sepsis 05/01/2022 Overview (10/29/2022): Last Assessment & Plan: . Leukocytosis 05/01/2022 Overview (10/29/2022): Last Assessment & Plan: . Hyponatremia 05/01/2022 Overview (10/29/2022): Last Assessment & Plan: . Hypokalemia 05/01/2022 Overview (10/29/2022): Last Assessment & Plan: . FAB (acute kidney injury) 05/01/2022 Lumbar spondylolysis 03/23/2022 DDD (degenerative disc disease), lumbosacral Crohn's disease of large intestine with fistula 02/08/2021 Assessment & Plan (12/29/2024 10:56 AM [employer]): 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 Doing well. Released by spine surgeon to regular work. Feels well. Will continue same and back in 6 mo. Assessment & Plan (02/08/2021 10:32 AM CDT): At this point recommend continuing his IFX. Levels are good and colon is good. Fistula is controlled and will get his labs and f/up in 6 months. What an delightful individual. . High risk medications (not anticoagulants) long- term use 09/23/2019 Assessment & Plan (09/23/2019 9:35 AM CDT): High risk medications: As with all patients taking immunosuppressive biologic therapies or immunomodulators, we provide a balanced discussion on benefits and risks associated with these medications. Regarding potential risks, we employ a strategy of active monitoring for medication related toxicities. Toxicities and risks discussed in monitoring include, but are not limited to the following: infusion reactions including anaphylaxis; bacterial, viral and fungal infections; pancreatitis; heart failure; neurologic reactions; hematologic and solid tumors malignancy including an increased risk of lymphoma and skin cancers; bone marrow toxicity including anemia, lymphopenia and immune suppression; hepatotoxicity and potential renal toxicity. Patients are actively assessed through routine laboratories (Q4 month or more frequently) which I personally review and are encouraged to contact us with any questions regarding new symptom development. 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 Question of possible crohn's in the setting of perianal disease Current Medication: Remicade 5mg q8wks (started 02/2019), 01/2020 increased to 10 mg/kg q8wks- level 17.43 01/22/20 at 6 weeks, level 13.1 on 04/06/22, >50.0 on 05/21/24 but drawn AFTER infusion, 06/25 level 7.4, approved for 10mg/kg every 4 weeks in 09/2024 Lomotil BID prn, colestid 2gm TID, Imodium 2 pills TID Fecal sidra 12/2019 68 Anterior lumbar fusion L4-S1 (open surgery) on 03/23 and then posterior lumber fusion of same on 04/09- infection and septic, PICC line and on antibiotics Saw Dr. Amor for perianal fistulas. Had seton placed 11/2018, exchange in May 2019, removed 09/[address] Amor Diagnosis: Soft tissue, anal fistula, excision: - Fibroadipose tissue with acute and chronic inflammation Endoscopies: Colon 09/2020 The entire examined colon is normal. - The entire examined colon is normal on direct and retroflexion views. - Biopsies were taken with a cold forceps for histology in the rectum, in the sigmoid colon, in the transverse colon and in the ascending colon. Diagnosis: A. Large intestine, ascending colon, biopsy: - Colonic mucosa with focal increased intraepithelial lymphocytes B. Large intestine, transverse colon, biopsy: - Colonic mucosa with focal increased intraepithelial lymphocytes C. Large intestine, sigmoid colon, biopsy: - Colonic mucosa with no pathologic abnormality D. Large intestine, rectum, biopsy: -Colonic mucosa with mild reactive epithelial changes Flex sig 10/2018 Open perianal abscess draining yellow blood tinged fluid. No fistula was seen found on perianal exam. No external hemorrhoids.There was an irritation in the anal canal vs superficial fissure. This is likely the source of blood in the stools. Granular mucosa and pale in the entire examined colon. Aphtha in the sigmoid colon. This is very small and unlikely the cause of rectal bleeding but raise the concern for Crohn's colitis PATH: Colon, biopsy: Colonic mucosa with intraepithelial lymphocytosis and focal mildly active chronic nonspecific colitis Colonoscopy 04/2018 Diverticulosis in the sigmoid colon. One 5 mm polyp in the rectum. The entire examined colon is normal. The distal rectum and anal verge are normal on retroflexion view PATH: Large intestine, right colon, biopsy Lymphocytic colitis, Large intestine, transverse colon, biopsy Lymphocytic colitis, Large intestine, left colon, biopsy Lymphocytic colitis, Large intestine, rectum, polypectomy Fragments of tubular adenoma Imaging: MRE 10/2023 IMPRESSION: IMPRESSION: 1. Slight interval increase in size of peripheral enhancing fluid collection in the left perianal/supralevator region. 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 Consider tissue sampling. The transsphincteric fistula and lateral gluteal cleft do not appear patent. Fistulous tract to the left medial gluteal cleft appears patent. 2. No other evidence of inflammatory bowel disease. No active inflammation or positive findings of the small bowel or colon 3. Hepatic steatosis. MRE 08/2021 IMPRESSION: 1. Stable configuration of the left-sided transsphincteric perianal fistula, with slightly improved inflammation surrounding the component within the intersphincteric plane. 2. No bowel wall thickening or evidence of active inflammation. MRI 05/2018 Left-sided transsphincteric perianal fistula with no associated abscess as detailed HBV vaccine status: Non immune Assessment & Plan (07/01/2024 11:02 AM CDT): CD with perianal disease and doing well. One bm/day and some constipation. Will continue same and /fu in 6 mo. Assessment & Plan (05/03/2023 10:12 AM CDT): CD doing well. Off atb's for spine infection. Wound closed. Needs rehab. GI young doing well. Will continue same and f/up in 4 mo. Assessment & Plan (01/25/2023 8:45 AM [employer]): Delightful CD patient s/p infection spine surgery. On the mend. One more surgery to close the defect by plastics. 1 formed bm/day. Will continue same and f/up in 3 mo. Weight is up and will need to address. Assessment & Plan (08/24/2022 9:50 AM CDT): Basically from the gi tract doing welll considering sepsis from back surgery. Still has the wound vac. On tract with his meds though 2 bm/day note some eye changes and encouraged to discuss with opthalm. Otherwise stable. Assessment & Plan (06/15/2022 9:12 AM CDT): CD of the colon with fistulae now s/p wound infection. On IV and po atb's and resuming his IFX. Will need an ankle replacement when this is all over. Will f/up in 8 weeks. So far hanging in there. Assessment & Plan (08/10/2020 10:40 AM CDT): Indeterm colitis most likely cD due to the fistula doing well. However it has been 2 years since last colonoscopy. Will schedule colon with bx's. F/up otherwise in 6 months. Assessment & Plan (04/06/2020 9:58 AM CDT): Indetermanent colitis with features c/w CD. Doing well. No obvious anal issues other than minor drg. So for now stay on current 10 mg/kg q 8 weeks. Renew the colestipol. Will f/up in 4 months. Assessment & Plan (09/23/2019 9:34 AM CDT): History of lymphocytic colitis. In 2018 developed perianal disease. Question possible crohn's diagnosis in the setting of perianal disease. He is followed by Dr. Amor as well. Had seton exchange in May. Has follow up at the end of next month with Dr. Amor he tells me and the plan may be to remove seton. His perianal symptoms have improved greatly since starting Remicade in February. Currently on 5mg/kg every 8 weeks. He is not having any perianal pain. Occasional itching. He reports drainage has drastically improved. Was having to wear a pad and no longer has to do this. Bowel habits improved as well. Was having 10-12 stools daily. He is now having 1-2 fairly formed stools daily. -will continue remicade -check IBD diagnostic panel and fecal calprotectin -continue cholestipol and loperamide -health maintenance- Dexa 04/2019, had recent flu shot, up to date on pneumonia vaccination per pt., He is scheduled to have second shingles vaccination soon -f/u in 6 months Wound discharge 08/07/2018 Anal fistula 06/17/2018 Rupture of anterior cruciate ligament of knee Loose body of knee 07/06/2014 Osteoarthritis of knee 07/06/2014 Knee pain 06/16/2014 Resolved Problems Problem Noted Date Diagnosed Date Resolved Date Bloody diarrhea 11/20/2018 12/23/2024 Overview (11/20/2018): Added automatically from request for surgery [id number] Colitis 09/25/2018 12/23/2024 Encounters Date Type Department Care Team Description 06/03/2025 Telephone [facility] [address] [place] [address] [place] [phone] Venice Deluna, RN Med Management Remicade updated orders [facility] 05/25/2025 Orders Only [facility] [address] [place] [address] [place] [id number] Raphael Lawson MD Crohn's disease of large intestine with fistula (HCC) (Primary Dx); High risk medications (not anticoagulants) long-term use 05/21/2025 Telephone [facility] [address] [place] [address] [place] [address] Bethany Herrera Med Management (Remicade POT for [facility]) from Last 3 Months Immunizations Immunization Administration Dates Next Due [employer] ([employer]) SARS-CoV-2 Vaccination 01/23/2021 Surgical History Surgery Date Site/Laterality Comments COLONOSCOPY Multiple-- Last 04/2018 UPPER GASTROINTESTINAL ENDOSCOPY 04/25/2018 - 05/24/2018 KNEE ARTHROSCOPY W/ ACL RECONSTRUCTION 11/25/2004 - 11/24/2005 Left ANAL FISSURECTOMY 11/25/2002 - 11/24/2003 SKIN CANCER EXCISION Multiple BUE-- Last 08/2017 ANAL FISTULOTOMY 08/05/2018 RECTAL EXAMINATION UNDER ANESTHESIA 06/24/2018 BIOPSY 11/21/2018 of sigmoid colon EXAMINATION UNDER ANESTHESIA 12/23/2018 Exam under anesthesia and seton placement EXAMINATION UNDER ANESTHESIA 06/19/2019 Exam under anesthesia, opening and curettage of fistula tract, seton exchange TOTAL SHOULDER REPLACEMENT 11/25/2022 - 11/24/2023 Left WOUND DEBRIDEMENT 01/23/2023 - 02/22/2023 LUMBAR SPINE SURGERY 11/25/2021 - 11/24/2022 x4 TREATMENT FISTULA ANAL 02/10/2024 Exam under anesthesia, fistula tract curettage, and seton placement Medical History Medical History Date Comments Chronic diarrhea Hypertension Dxd 2012 Asthma Type 2 diabetes mellitus (HCC) D xd 2014 BPH (benign prostatic hyperplasia) Hyperlipidemia Obesity History of skin cancer Multiple BUE-- Last 08/2017 Anxiety Perirectal abscess Microscopic colitis MARIZA on CPAP Benign prostatic hyperplasia Family History Medical History Relation Name Comments No Known Problems Father No Known Problems Mother Anesthesia problems Neg Hx Clotting disorder Neg Hx Heart disease Neg Hx Malig Hypertension Neg Hx Malig Hyperthermia Neg Hx Pseudochol deficiency Neg Hx Stroke Neg Hx Relation Name Status Comments Father Mother Social History Tobacco Use Types Packs/Day Years Used Date Smoking Tobacco: Former Cigarettes 1 44.9 0 11/25/1972 - 10/25/2017 Passive Smoke Exposure: Never Smokeless Tobacco: Former Tobacco Cessation:Counseling Given: Not Answered Comments:Haven't used any tobacco products 5 years Alcohol Use Standard Drinks/Week Comments Yes 28 (1 standard drink = 0.6 oz pu re alcohol) OASIS D0700: Social Isolation Answer Da te Recorded Frequency of experiencing loneliness or isolatio n Never 02/02/2023 AUDIT-C Answer Date Recorded Q1: How often do you have a drink containing alc ohol? Monthly or less 07/22/2024 Q2: How many drinks containi ng alcohol do you have on a typical day when you are drinking? 1 or 2 07/22/2024 Q3: How often do you have si x or more drinks on one occasion? Monthly 07/22/2024 Personal Safety Answer Date Recorded Have you ever been in or are you currently in a harmful physical or emotional relationship or is someone making you feel afraid or unsafe? Denies 02/10/2024 Sex and Gender Information Value Date Recorded Sex Assigned at Not on file Legal Sex Male 10:02 AM [employer] Gender Identity Male 08/04/2020 5:48 AM CDT Sexual Orientation Not on file Obstetrics History Last Filed Vital Signs Vital Sign Reading Time Taken Comments Blood Pressure 135/83 07/22/2024 10:00 AM CDT Pulse 82 07/22/2024 10:00 AM CDT Temperature 36.7 C (98.1 F) 07/01/2024 10:25 AM CDT Respiratory Rate 18 07/22/2024 10:00 AM CDT Oxygen Saturation 96% 07/01/2024 10:25 AM CDT Inhaled Oxygen Concentration - - Weight 140.2 kg (309 lb) 07/22/2024 10:00 AM CDT Height 177.8 cm (5' 10) 07/22/2024 10:00 AM CDT Body Mass Index 44.34 07/22/2024 10:00 AM CDT Plan of Treatment Health Maintenance Due Date Last Done Comments Albumin Creatinine Ratio, Urine 1965 Depression Screening 1965 Hepatitis C Screening 1965 Prostate Cancer Screening-PSA 1965 Dilated Eye Exam 1965 Foot Exam 1965 Lipid Panel 1965 Hepatitis B Screening 1981 Regular Well Visit/Exam 18-64 1981 Zoster Vaccine (1 of 2) 1982 Lung Cancer Screening 2013 DTaP/Tdap/Td Vaccine (1 - Tdap) 05/02/2019 9 Pneumococcal vaccine <65 (2 of 2 - PCV) 05/01/2020 05/01/2019 Covid-19 Vaccine (2 - Jansse n risk series) 02/20/2021 01/23/2021 Hemoglobin A1C 11/01/2022 05/02/2022 eGFR 11/07/2023 11/07/2022, 08/25, 08/13/2022, Additional history exists Influenza Vaccine (#1) 2025 , 09/10/2019, 09/04/2018, Additional history exists Colon Cancer Screening-Colonoscopy 09/27/2030 09/27/2020, 04/28/2018 Colon Cancer Screening-CT Colonography Discontinued 09/27/2020, 11/21/2018, 04/28/2018 Colon Cancer Screening-DNA Stool Discontinued 09/27/2020, 11/21/2018, 04/28/2018 Colon Cancer Screening-FIT Discontinued 09/27, 11/21/2018, 04/28/2018 Colon Cancer Screening-Sigmoidoscopy Discontinued 09/27/2020, 11/21/2018, 04/28/2018 Medical Devices Implanted Type Area Truck Cleaner Device Identifier Shelf Expiration Date Model / Serial / Lot Screw Left: Knee Procedures Procedure Name Priority Date/Time Associated Diagnosis Comments EGFR Routine 11/07/2022 9:55 AM [employer] COLONOSCOPY 09/27/2020 8:01 AM [employer] from Last 3 Months or Most Recently Relevant to Health Maintenance Results * eGFR (11/07/2022 9:55 AM [employer]) Pathologist [facility] eGFR >90 90 - 130 mL/min/1. 73 m2 [facility] Comment: Interpretive Data Reference Interval Normal >/= 90 mL/min/1.73m2 Mildly decreased* 60 - 89 mL/min/1.73m2 Mildly to moderately decreased 45 - 59 mL/min/1.73m2 Moderately to severely decreased 30 - 44 mL/min/1.73m2 Severely decreased 15 - 29 mL/min/1.73m2 Kidney Failure < 15 mL/min/1.73m2 *Relative to young adult level Estimated glomerular filtration rate is determined by the 2020 CKD-EPI equation recommended by the National Kidney Foundation (A Unifying Approach to GFR Estimation: Recommendations of the NKF-ASK Task Force on Reassessing the Inclusion of Race in Diagnosing Kidney Disease, JASN 2020). The CKD-EPI equation should not be used for patients with unstable renal function and has not been validated in children and those over 70. Current interpretive data was last reviewed 2021. Blood 11/07/2022 9:55 AM [employer] 11/07/2022 2:14 PM [employer] Pete Gunderson MD LAB BLOOD ORDERABLES F inal Result [facility] Department [place] [address] * COLONOSCOPY (09/27/2020 8:01 AM [employer]) Anatomical Region Laterality Modality Other Narrative Procedure Note Raphael Lawson MD - 09/27/2020 8:01 AM CST ENDOSCOPY LAB Patient Name: Terence Patel Procedure Date: 09/27/2020 8:01 AM Date of : 1965 Admit Type: Outpatient Age: 55 Gender: Male Attending MD: Raphael Lawson M.D. Room: [facility] ENDOSCOPY ROOM 02 Note Status: Finalized Procedure: Colonoscopy Indications: Suspected Crohn's disease of the colon Providers: Raphael Lawson M.D. Referring MD: Andrew Agarwal Jr, M.D. Medicines: Monitored Anesthesia Care Complications: No immediate complications. Estimated Blood Loss: Estimated blood loss was minimal. Procedure: Pre-Anesthesia Assessment: - Prior to the procedure, a History and Physical was performed, and patient medications and allergies were reviewed. The patient is competent. The risks andbenefits of the procedure and the sedation options and riskswere discussed with the patient. All questions were answered and informed consent was obtained. Patientidentification and proposed procedure were verified by the physicianin the pre-procedure area. Mental Status Examination:alert and oriented. Airway Examination: normal oropharyngeal airway and neck mobility. Respiratory Examination:clear to auscultation. CV Examination: normal. Prophylactic Antibiotics: The patient does not require prophylactic antibiotics. Prior Anticoagulants: The patient hastaken no previous anticoagulant or antiplatelet agents. ASA Grade Assessment: II - A patient with mild systemic disease. After reviewing the risks and benefits, the patient was deemed in satisfactory condition to undergo the procedure. The anesthesia plan was to use monitored anesthesia care (MAC). Immediately prior toadministration of medications, the patient was re-assessed foradequacy to receive sedatives. The heart rate, respiratory rate, oxygen saturations, blood pressure, adequacy ofpulmonary ventilation, and response to care were monitored throughout the procedure. The physical status of the patient was re-assessed after the procedure. The benefits, risks and alternatives of the procedureand sedation were discussed and informed consent wasobtained. All questions were answered. Please refer to the signed informed consent document in the medical record. Thescope was passed under direct vision. The [id number] introduced through the anus and advanced to the cecum, identified by appendiceal orifice and ileocecal valve.The colonoscopy was performed without difficulty. Thepatient tolerated the procedure well. The quality of the bowel preparation was good. Bowel prep was administered usinga split dose. Findings: The colon (entire examined portion) appeared normal. Unable to get enough scope on the right side to enter the ICV. Large patient. The entire examined colon appeared normal on direct and retroflexion views. Biopsies were taken with a cold forceps in the rectum, in the sigmoid colon, in the transverse colon and in the ascending colon forhistology. Impression: - The entire examined colon is normal. - The entire examined colon is normal on direct and retroflexion views. - Biopsies were taken with a cold forceps for histologyin the rectum, in the sigmoid colon, in the transversecolon and in the ascending colon. Recommendation: - Await pathology results. - Repeat colonoscopy for surveillance based onpathology results. - Return to GI office in 3 months. - . Attending Participation: I personally performed the entire procedure. Electronically signed by Raphael Lawson MD Raphael Lawson M.D. 09/27/2020 8:34:12 AM Number of Addenda: 0 Note Initiated On: 09/27/2020 8:01 AM Raphael Lawson MD ENDOSCOPY PROCEDURES Final Result from Last 3 Months or Most Recently Relevant to Health Maintenance Insurance FORMERLY [facility] [place] [facility] [place] COMP[place] GENERIC WORKERS COMPENSATION GENERIC Advance Directives For more information, please contact: [phone] * Full Code (Latest Code Status on File) Date Activated Date Inactivated Comments 09/27/2020 7:09 AM 09/27/2020 1:10 PM * Full Code Date Activated Date Inactivated Comments 11/21/2018 11:22 AM 11/24/2018 1:04 PM Care Teams Conductor Sleeping Car Relationship Specialty Start Date End Date Vishal Martinez DO [address] [facility] [address] [place] [address] PCP - General Internal Medicine 11/30/24 [place] [address] [address] Video Control Engineer Gastroenterology 06/19/18 [place] [address] [address] Video Control Engineer Gastroenterology 06/19/18 Fernando Amor MD [address] [facility] [id number] [place] [address] Surgeon Colon and Rectal Surgery 01/10/24
--- OUTSIDE RECORDS SUMMARY | 2025-06-18 08:35 | XMS_ITS | Referral Summary ---
Author Organization [facility] Cierra Natarajan Extkenya nsion Address [address] [facility] [place] [address] Care Team Providers Care Boat Designer Name Role Phone Kathryn Arzate MD Unavailable Sid Turner MD Unavailable [phone] Fernando Amor MD Unavailable [phone] Vishal Martinez DO Primary Care Provider Encounters Date Type Department Care Team Description 06/03/2025 Telephone [facility] Gastroenterology [address] [facility] Advanced Medicine 12th [place] [address] [place] [address] Venice Deluna, RN Med Management Remicade updated orders [facility] 05/25/2025 Orders Only [facility] Gastroenterology [address] [facility] Advanced Medicine 12th [place] [address] [place] [address] Raphael Lawson MD Crohn's disease of large intestine with fistula (HCC) (Primary Dx); High risk medications (not anticoagulants) long-term use 05/21/2025 Telephone [facility] Gastroenterology [address] [facility] Advanced Medicine 12th [place] [address] [place] [address] Bethany Herrera Med Management (Remicade POT for [facility]) from Last 3 Months Allergies No known active allergies Medications LYRICA [...] 02/08/2021 Assessment & Plan (12/29/2024 10:56 AM MACHINE PECAN PICKER): 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 Doing well. 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 Assessment & Plan (01/25/2023 8:45 AM MACHINE PECAN PICKER): Delightful CD patient s/p infection spine surgery. [...] (11/20/2018): Added automatically from request for surgery [id number] Colitis 09/25/2018 12/23/2024 Immunizations Immunization Administration Dates Next Due CrowdBouncer (J&J) SARS-CoV-2 Vaccination 01/23/2021 Social History Tobacco Use Types Packs/Day Years [...] on file Legal Sex Male 10:02 AM MACHINE PECAN PICKER Gender Identity Male 08/04/2020 5:48 AM CDT Sexual Orientation Not on file Last Filed [...] 07/22/2024 10:00 AM CDT Plan of Treatment Not on file Medical Devices Implanted Type Area Running Specialist Device Identifier Shelf Expiration Date Model / Serial / Lot Screw Left: Knee Procedures Procedure Name Priority Date/Time Associated Diagnosis Comments EGFR Routine 11/07/2022 9:55 AM MACHINE PECAN PICKER COLONOSCOPY 09/27/2020 8:01 AM MACHINE PECAN PICKER from Last 3 Months or Most Recently Relevant to Health Maintenance Results * eGFR (11/07/2022 9:55 AM MACHINE PECAN PICKER) eGFR >90 90 - 130 mL/min/1. 73 m2 [facility] Comment: Interpretive Data Reference Interval Normal >/= [...] last reviewed 2021. Blood 11/07/2022 9:55 AM MACHINE PECAN PICKER 11/07/2022 2:14 PM MACHINE PECAN PICKER Pete Gunderson MD LAB BLOOD ORDERABLES F inal Result [facility] Department [place] [address] * COLONOSCOPY (09/27/2020 8:01 AM MACHINE PECAN PICKER) Anatomical Region Laterality Modality Other Narrative Procedure Note Raphael Lawson MD - 09/27/2020 8:01 AM CST ENDOSCOPY LAB Patient Name: Terence Patel Procedure Date: 09/27/2020 8:01 AM Date of : 1965 Admit Type: Outpatient Age: 55 Gender: Male Attending MD: Raphael Lawson M.D. Room: [facility] ENDOSCOPY ROOM 02 Note Status: Finalized Procedure: [...] Thescope was passed under direct vision. The [id number] introduced through the anus and advanced to [...] Most Recently Relevant to Health Maintenance [place] [employer] [place] [employer] [place] [employer] [place] [employer] [place] WORK[place] COMP[place] GENERIC WORKERS COMPENSATION GENERIC Advance Directives For more information, please contact: [phone] * Full Code (Latest Code Status on File) Date Activated Date Inactivated Comments 09/27/2020 7:09 AM 09/27/2020 1:10 PM * Full Code Date Activated Date Inactivated Comments 11/21/2018 11:22 AM 11/24/2018 1:04 PM Care Teams Boat Designer Relationship Specialty Start Date End Date Vishal Martinez DO [address] [address] PCP - General Internal Medicine 11/30/24 [place] [address] [facility] [address], [place] [address] Auto Air Conditioning Mechanic Gastroenterology 06/19/18 [place] [address] [facility] [address] [place] [address] Auto Air Conditioning Mechanic Gastroenterology 06/19/18 Fernando Amor MD [address] [facility] [phone] [place] [address] Surgeon Colon and Rectal Surgery 01/10/24
--- OUTSIDE RECORDS SUMMARY | 2025-06-18 08:35 | XMS_ITS | Encounter Summary ---
Author Organization [facility] Address [address] [place] [address] Phone Care Team Providers Care Apprentice Lineman Third Step Name Role Phone Kathryn Arzate MD Unavailable [phone] Sid Turner MD Unavailable [phone] Victor M Real Primary Care Provider Fernando Amor MD Unavailable [phone] Vishal Martinez DO Primary Care Provider [phone] Encounter Details Date Type Department Care Team (Late st Contact Info) Description 06/19/2022 Orders Only [facility] Scanning, Provider Social History Tobacco Use Types Packs/Day Years Used Date Smoking Tobacco: Former Cigarettes 1 44.9 1 973 - 10/2017 Smokeless Tobacco: Current Comments:vape Alcohol Use Standard Drinks/Week Comments Yes 28 (1 standard drink = 0.6 oz pu re alcohol) AUDIT-C Answer Date Recorded Q1: How often do you have a drink containing alcohol? 4 or more times a week 02/08/2021 Q2: How many drinks containi ng alcohol do you have on a typical day when you are drinking? 3 or 4 Q3: How often do you have si x or more drinks on one occasion? Less than monthly 02/08/2021 Sex and Gender Information Value Date Recorded Sex Assigned at Not on file Legal Sex Male 10:02 AM STORE CUSTODIAN Gender Identity Male 08/04/2020 5:48 AM CDT Sexual Orientation Not on file documented as of this encounter Plan of Treatment Not on file documented as of this encounter Procedures Procedure Name Priority Date/Time Associated Diagnosis Comments SCAN - LABS 06/19/2022 documented in this encounter Results * SCAN - LABS (06/19/2022) us Provider Scanning Final Result documented in this encounter Visit Diagnoses Not on filedocumented in this encounter Care Teams Apprentice Lineman Third Step Relationship Specialty Start Date End Date Victor M Real PA [address] [facility] [address] [place] [address] PCP - General Physician Seed Packer 03/14/22 11/29/24 Vishal Martinez DO [address] [facility] [address] [place] [address] PCP - General Internal Medicine 11/30/24 [place] [address] [address] Convention Manager Gastroenterology 06/19/18 [place] [address] [address] Convention Manager Gastroenterology 06/19/18 Fernando Amor MD [address] [facility] [phone] [place] [address] Surgeon Colon and Rectal Surgery 01/10/24 documented as of this encounter
--- OUTSIDE RECORDS SUMMARY | 2025-06-18 08:35 | XMS_ITS | Encounter Summary ---
Author Organization [facility] Address [address] [place] [address] Phone Care Team Providers Care Board Lining Machine Operator Name Role Phone Any Ramirez MD, Andrew Suarez Primary Care Provider Kathryn Arzate MD Unavailable Sid Turner MD Unavailable [phone] Victor M Real Primary Care Provider Fernando Amor MD Unavailable [phone] Vishal Martinez DO Primary Care Provider [phone] Encounter Details Date Type Department Care Team (Late st Contact Info) Description 11/10/2019 Orders Only [facility] Gastroenterology [address] [facility] Advanced Medicine 8th [place] [address] [place] [address] Raphael Lwason MD [address] [place] [address] Crohn's disease with complication, unspecified gastrointestinal tract location (HCC) (Primary Dx) Social History Tobacco Use Types Packs/Day Years Used Date Smoking Tobacco: Former Cigarettes 1 44.9 1 973 - 10/2017 Smokeless Tobacco: Current Comments:vape Alcohol Use Standard Drinks/Week Comments Yes 28 (1 standard drink = 0.6 oz pu re alcohol) Sex and Gender Information Value Date Recorded Sex Assigned at Not on file Legal Sex Male 10:02 AM SUPERVISOR FERTILIZER PROCESSING Gender Identity Male 08/04/2020 5:48 AM CDT Sexual Orientation Not on file documented as of this encounter Ordered Prescriptions Prescription Sig Dispense Quantity Refills Last Filled Start Date End Date inFLIXimab (REMICADE) 100 mg injectionIndicatio ns:Crohn's Disease Infuse 80 mL (800 mg total) into a venous catheter every 8 (eight) weeks 1 each 2 11/10/2019 2 documented in this encounter Plan of Treatment Scheduled Orders Name Type Priority Associated Diagnoses Orde r Schedule PPD Test Point of Care Testing Routine Crohn's disease with complication, unspecified gastrointestinal tract location (HCC) Ordered: 11/10/2019 documented as of this encounter Visit Diagnoses Diagnosis Crohn's disease with complication, unspecified gastrointestinal tract location (HCC)- Primary documented in this encounter Care Teams Board Lining Machine Operator Relationship Specialty Start Date End Date Andrew Agarwal Jr., MD [address] [place] [address] PCP - General 04/05/17 03/13/22 Victor M Real PA [address] [facility] [address] [place] [address] PCP - General Physician Judge Clerk 03/14/22 11/29/24 Vishal Martinez DO [address] [facility] [address] [place] [address] PCP - General Internal Medicine 11/30/24 [place] [address] [address] [facility] [address], [place] [address] Nursing Associate Gastroenterology 06/19/18 [place] [address] [address] [facility] [address], [place] [address] Nursing Associate Gastroenterology 06/19/18 Fernando Amor MD [address] [facility] [phone] [place] [address] Surgeon Colon and Rectal Surgery 01/10/24 documented as of this encounter
--- OUTSIDE RECORDS SUMMARY | 2025-06-18 08:35 | XMS_ITS | Encounter Summary ---
Author Organization [facility] Address [address] [place] [address] Phone Care Team Providers Care Tank Officer Name Role Phone Any Ramirez MD, Andrew Suarez Primary Care Provider Kathryn Arzate MD Unavailable [phone] Sid Turner MD Unavailable [phone] Victor M Real Primary Care Provider Fernando Amor MD Unavailable [phone] Vishal Martinez DO Primary Care Provider [phone] Encounter Details Date Type Department Care Team (Late st Contact Info) Description 01/22/2020 Orders Only [facility] Scanning, Provider [...] on file Legal Sex Male 10:02 AM JOINT CUTTER Gender Identity Male 08/04/2020 5:48 AM CDT Sexual Orientation Not on file documented as of this encounter Plan of Treatment Not on file documented as of this encounter Procedures Procedure Name Priority Date/Time Associated Diagnosis Comments SCAN - LABS 01/22/2020 documented in this encounter Results * SCAN - LABS (01/22/2020) us Provider Scanning Final Result documented in this encounter Visit Diagnoses Not on filedocumented in this encounter Care Teams Tank Officer Relationship Specialty Start Date End Date Andrew Agarwal Jr., MD [address] [place] [address] PCP - General 04/05/17 03/13/22 Victor M Real PA [address] [facility] [address] [place] [address] PCP - General Physician Roller Stainer 03/14/22 11/29/24 Vishal Martinez DO [address] [facility] [address] [place] [address] PCP - General Internal Medicine 11/30/24 [place] [address] [address] [facility] [address] [place] [address] Performance Management Consultant Gastroenterology 06/19/18 [place] [address] [facility] [address] [place] [address] Performance Management Consultant Gastroenterology 06/19/18 Fernando Amor MD [address] [facility] [phone] [place] [address] Surgeon Colon and Rectal Surgery 01/10/24 documented as of this encounter
--- OUTSIDE RECORDS SUMMARY | 2025-06-18 08:35 | XMS_ITS | Encounter Summary ---
Author Organization [facility] Address [address] [place] [address] Phone Care Team Providers Care Bean Roaster Name Role Phone Any Ramirez MD, Andrew Suarez Primary Care Provider Kathryn Arzate MD Unavailable [phone] Sid Turner MD Unavailable [phone] Victor M Real Primary Care Provider Fernando Amor MD Unavailable [phone] Vishal Martinez DO Primary Care Provider [phone] Encounter Details Date Type Department Care Team (Late st Contact Info) Description 01/09/2020 Orders Only [facility] Scanning, Provider [...] on file Legal Sex Male 10:02 AM RESTAURANT HOST Gender Identity Male 08/04/2020 5:48 AM CDT Sexual Orientation Not on file documented as of this encounter Plan of Treatment Not on file documented as of this encounter Procedures Procedure Name Priority Date/Time Associated Diagnosis Comments SCAN - LABS 01/09/2020 documented in this encounter Results * SCAN - LABS (01/09/2020) us Provider Scanning Final Result documented in this encounter Visit Diagnoses Not on filedocumented in this encounter Care Teams Bean Roaster Relationship Specialty Start Date End Date Andrew Agarwal Jr., MD [address] [place] [address] PCP - General 04/05/17 03/13/22 Victor M Real PA [address] [facility] [address] [place] [address] PCP - General Physician Obstetrician And Gynaecologist 03/14/22 11/29/24 Vishal Martinez DO [address] [facility] [address] [place] [address] PCP - General Internal Medicine 11/30/24 [place] [address] [address] [facility] [address] [place] [address] Hydrology Teacher Gastroenterology 06/19/18 [place] [address] [address] [facility] [address] [place] [address] Hydrology Teacher Gastroenterology 06/19/18 Fernando Amor MD [address] [facility] [phone] [place] [address] Surgeon Colon and Rectal Surgery 01/10/24 documented as of this encounter
--- OUTSIDE RECORDS SUMMARY | 2025-06-18 08:36 | XMS_ITS | Clinical Summary ---
Author Organization [facility] Address [address] [place] [address] Phone Care Team Providers Care Roof Service Technician Name Role Phone Best Holloway DO Primary Care Provider [phone] Allergies No known active allergies Medications traMADoL 50 mg tablet Take by mouth every 6 hours as needed for Pain. Active atorvastatin 40 mg tablet Take 40 mg by mouth daily at bedtime. Active triamterene 75 mg-hydrochloroth iazide 50 mg tablet Take 1 Tablet by mouth daily at bedtime. Active nebivoloL 10 mg tablet Take 10 mg by mouth daily. Active tadalafiL 5 mg tablet Take 5 mg by mouth daily. BPH Active metaxalone 800 mg tablet Take 800 mg by mouth 3 times daily. Only takes twice daily Active montelukast 10 mg tablet Take 10 mg by mouth daily at bedtime. Active levocetirizine (XYZAL) 5 mg tablet Take 5 mg by mouth daily at bedtime. Active celecoxib 100 mg capsule Take 100 mg by mouth 2 times daily. Active ergocalciferol (vitamin D2) 1,250 mcg (50,000 unit) capsule Take 50,000 Units by mouth twice weekly. Saturday and saturday Active pregabalin 150 mg capsule Take 150 mg by mouth daily at bedtime. Active escitalopram 20 mg tablet Take 20 mg by mouth daily at bedtime. Active colestipoL 1 gram tablet Take 2 Grams by mouth 3 times daily. Morning evening and bedtime Active loperamide 2 mg capsule Take 2 mg by mouth 3 times daily. Morning evening and bedtime Active sodium chloride 0.9% Parenteral Solution 250 mL with inFLIXimab 100 mg Recon Soln Inject by intravenous injection see administration instructions. Every 2 months Active doxycycline hyclate 50 mg capsule Take 100 mg by mouth every 12 hours. Active multivitamin tablet Take 1 Tablet by mouth daily. Active exenatide microspheres 2 mg/0.85 mL Auto-Injector Inject 2 mg by subcutaneous injection every 7 days. Saturday Active albuterol sulfate HFA 90 mcg/actuation aerosol inhaler Take 2 Puffs by inhalation every 4 hours as needed. Active fluticasone propionate (FLONASE) 50 mcg/spray [place], Suspension nasal inhaler Administer 1 [place] in each nostril 1 time daily as needed. Active HYDROcodone-acet aminophen (NORCO) 5-325 mg tabletIndication s:Back wound, unspecified laterality, initial encounter Take 1 Tablet by mouth every 4 hours as needed for moderate pain. Max Daily Amount: 6 Tablets 15 Tablet 9:33 AM CDT 02/05/20 Active Social History Tobacco Use Types Packs/Day Years Used Date Smoking Tobacco: Former Cigarettes Q uit: 11/18/2017 Tobacco Cessation:Counseling Given: Not Answered Alcohol Use Standard Drinks/Week Comments Yes 1 (1 standard drink = 0.6 oz pur e alcohol) Sex and Gender Information Value Date Recorded Sex Assigned at Not on file Legal Sex Male 2:37 PM RN RESOURCE NURSE Gender Identity Not on file Sexual Orientation Not on file Last Filed Vital Signs Vital Sign Reading Time Taken Comments Blood Pressure 111/80 02/04/2023 9:34 AM CDT Pulse 84 02/04/2023 9:34 AM CDT Temperature 36.3 C (97.4 F) 02/04/2023 9:23 AM CDT Respiratory Rate 16 02/04/2023 9:34 AM CDT Oxygen Saturation 98% 02/04/2023 9:34 AM CDT Inhaled Oxygen Concentration - - Weight 153.3 kg (338 lb) 02/04/2023 5:46 AM CDT Height 175.3 cm (5' 9) 02/04/2023 5:46 AM CDT Body Mass Index 49.91 02/04/2023 5:46 AM CDT Plan of Treatment Health Maintenance Due Date Last Done Comments DIABETES ANNUAL FOOT EXAM 1981 DIABETES ANNUAL RETINAL EXAM 1981 DIABETES MICROALBUMIN ANNUAL SCREEN 1981 LDL CHOLESTEROL ANNUAL 1981 DTAP/TDAP/TD VACCINES (1 - Tdap) 1982 ZOSTER VACCINE (1 of 2) 1982 FIT-DNA Q 3 years 2008 FIT/FOBT Q 1 year 2008 DIABETES HBA1C Q 6 MONTHS 11/01/2022 05/02/2022 RSV VACCINE (60+ or ) (1 - Risk 60-74 years 1-dose series) 2023 Flex Sig/CT Colonography Q 5 years 11/21/20232017 INFLUENZA VACCINE (#1) 2025 COLORECTAL SCREENING 09/27/2030 09/27/2020, 11/21/2018, 04/28/2018 Colorectal Cancer Screening 09/27/2030 Insurance [employer] [address] [place] [address] [employer] RX Member Subscriber Plan / Payer (Ef fective for All Dates) Name:Terence Leos Relation to Subscriber:Self Name:Terence Leos Payer ID:Not on file Group ID:Not on file Type:RX Commercial Address: [facility] Teams Roof Service Technician Relationship Specialty Start Date End Date Best Holloway DO [address] [facility] [address] [place] [id number] PCP - General Internal Medicine 01/24/23
--- OUTSIDE RECORDS SUMMARY | 2025-06-18 08:36 | XMS_ITS | Encounter Summary ---
Author Organization [facility] [employer] [facility] Address [address] [place] [address] Phone Care Team Providers Care Die Repair Name Role Phone Any Ramirez MD, Andrew Suarez Primary Care Provider Kathryn Arzate MD Unavailable [phone] Sid Turner MD Unavailable [phone] Victor M Real Primary Care Provider Fernando Amor MD Unavailable Vishal Martinez DO Primary Care Provider [phone] Encounter Details Date Type Department Care Team (Late st Contact Info) Description 11/26/2017 Orders Only [facility] Scanning, Provider Social History Tobacco Use Types Packs/Day Years Used Date Smoking Tobacco: Never Assessed Sex and Gender Information Value Date Recorded Sex Assigned at Not on file Legal Sex Male 10:02 AM STEELWORKER Gender Identity Male 08/04/2020 5:48 AM CDT Sexual Orientation Not on file documented as of this encounter Plan of Treatment Not on file documented as of this encounter Procedures Procedure Name Priority Date/Time Associated Diagnosis Comments SCAN - RADIOLOGY/IMAGING 11/26/2017 documented in this encounter Results * SCAN - RADIOLOGY/IMAGING (11/26/2017) Anatomical Region Laterality Modality Other us Provider Scanning Final Result documented in this encounter Visit Diagnoses Not on filedocumented in this encounter Care Teams Die Repair Relationship Specialty Start Date End Date Andrew Agarwal Jr., MD [address] [place] [address] PCP - General 04/05/17 03/13/22 Victor M Real PA [address] [place] [address] PCP - General Physician Music Copyist 03/14/22 11/29/24 Vishal Martinez DO [address] [place], [place] [address] PCP - General Internal Medicine 11/30/24 [place] [address] [address] [facility] [address] [place] [address] Clinical Unit Educator Gastroenterology 06/19/18 [place] [address] [address] [facility] [address] [place] [address] Clinical Unit Educator Gastroenterology 06/19/18 Fernando Amor MD [address] [facility] [phone] [place] [address] Surgeon Colon and Rectal Surgery 01/10/24 documented as of this encounter
--- OUTSIDE RECORDS SUMMARY | 2025-06-18 08:36 | XMS_ITS | Clinical Summary ---
Author Organization [facility] Address [address] [place] [id number] Care Team Providers Care Account Engineer Name Role Phone Best Holloway MD Primary Care Provider [phone] Allergies No known active allergies Social History Tobacco Use Types Packs/Day Years Used Date Smoking Tobacco: Never Assessed Sex and Gender Information Value Date Recorded Sex Assigned at Not on file Legal Sex Male 7:10 PM CDT Gender Identity Not on file Sexual Orientation Not on file Last Filed Vital Signs Vital Sign Reading Time Taken Comments Blood Pressure 119/66 07/13/2021 2:29 PM CDT Pulse 76 07/13/2021 2:29 PM CDT Temperature 36.7 C (98.1 F) 07/13/2021 2:29 PM CDT Respiratory Rate 18 07/13/2021 2:29 PM CDT Oxygen Saturation 98% 07/13/2021 2:29 PM CDT Inhaled Oxygen Concentration - - Weight 149.7 kg (330 lb) 07/13/2021 2:29 PM CDT Height 177.8 cm (5' 10) 07/13/2021 2:29 PM CDT Body Mass Index 47.35 07/13/2021 2:29 PM CDT Plan of Treatment Health Maintenance Due Date Last Done Comments Colorectal Cancer Screening Colonoscopy (10 Years) 1963 Annual Physical 1966 Hepatitis C 1981 DTaP, Tdap and Td Vaccines ( 1 - Tdap) 1982 Pneumococcal Vaccine: 50+ Ye ars (1 of 1 - PCV) 2013 Zoster Vaccines (1 of 2) 2013 COVID-19 Vaccine (2 - 2023-2 5 season) 2024 01/30/2021 RSV Immunization or 60+ Years (1 - 1-dose 75+ series) 2038 Meningococcal B Vaccine Aged Out No l onger eligible based on patient's age to complete this topic Meningococcal Vaccine Aged Out No corey feli eligible based on patient's age to complete this topic RSV Immunizations Under 20 Months Aged Out No longer eligible based on patient's age to complete this topic Insurance [employer] Care Teams Account Engineer Relationship Specialty Start Date End Date Best Holloway MD [address] [place] [address] PCP - General INTERNAL MEDICINE 07/13/21
--- OUTSIDE RECORDS SUMMARY | 2025-06-18 08:36 | XMS_ITS | Encounter Summary ---
Author Organization [facility] Address [address] [place] [address] Phone Care Team Providers Care Roll Cutter Name Role Phone Kathryn Arzate MD Unavailable Sid Turner MD Unavailable [phone] Victor M Real Primary Care Provider Fernando Amor MD Unavailable [phone] Vishal Martinez DO Primary Care Provider [phone] Encounter Details Date Type Department Care Team (Late st Contact Info) Description 03/29/2024 Orders Only [facility] Scanning, Provider Social History Tobacco Use Types Packs/Day Years Used Date Smoking Tobacco: Former Cigarettes 1 44.9 0 11/25/1972 - 10/25/2017 Passive Smoke Exposure: Never Smokeless Tobacco: Former Comments:Haven't used any to bacco products 5 years Alcohol Use Standard Drinks/Week Comments Yes 28 (1 standard drink = 0.6 oz pu re alcohol) OASIS D0700: Social Isolation Answer Da te Recorded Frequency of experiencing loneliness or isolatio n Never 02/02/2023 AUDIT-C Answer Date Recorded Q1: How often do you have a drink containing alc ohol? 2-4 times a month 01/23/2024 Q2: How many drinks containi ng alcohol do you have on a typical day when you are drinking? 1 or 2 01/23/2024 Frequency of Binge Drinking Not on file 12/27 Personal Safety Answer Date Recorded Have you ever been in or are you currently in a harmful physical or emotional relationship or is someone making you feel afraid or unsafe? 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 Gender Identity Male 08/04/2020 5:48 AM CDT Sexual Orientation Not on file documented as of this encounter Plan of Treatment Not on file documented as of this encounter Procedures Procedure Name Priority Date/Time Associated Diagnosis Comments SCAN - LABS 03/29/2024 documented in this encounter Results * SCAN - LABS (03/29/2024) us Provider Scanning Final Result documented in this encounter Visit Diagnoses Not on filedocumented in this encounter Care Teams Roll Cutter Relationship Specialty Start Date End Date Victor M Real PA [address] [place] [address] PCP - General Physician Senior Software Quality Analyst 03/14/22 11/29/24 Vishal Martinez DO [address] [place] [address] PCP - General Internal Medicine 11/30/24 [place] [address] [facility] [address] [place] [address] Nutritionists Gastroenterology 06/19/18 [place] [address] [place] [address] Nutritionists Gastroenterology 06/19/18 Fernando Amor MD [phone] [place] [address] Surgeon Colon and Rectal Surgery 01/10/24 documented as of this encounter
[2025-06-18 08:53] LABS: Hematocrit 50.7 % (40.0-54.0); Hemoglobin 15.2 g/dL (14.0-18.0); Immature Granulocyte Percent A 0.4 % (0.0-0.0); Lymphocytes Absolute Auto 2.36 K/mm3 (1.10-4.50); Mean Corpuscular HGB Conc 30.0 g/dL (32-36); Mean Corpuscular Hemoglobin 23.7 pg (27.0-31.0); Mean Corpuscular Volume 79.0 fL (78.0-102.0); Nucleated Red Blood Cells Absolute Auto 0.00 K/mm3 (0.00-0.00); Nucleated Red Blood Cells Perc 0.0 % (0-0.0); Platelet Count Result 260 K/mm3 (150-420); Red Blood Count 6.42 M/mm3 (4.70-6.10); White Blood Count 8.4 K/mm3 (4.8-10.8)
[2025-06-18 09:15] LABS: Alanine Aminotransferase 31 U/L (6-50); Albumin Level 4.1 g/dL (3.5-5.1); Alkaline Phosphatase 51 U/L (38-126); Anion Gap 10 mmol/L (4-12); Aspartate Amino Transferase 27 U/L (17-59); Bilirubin,Total 1.4 mg/dL (0.2-1.3); Blood Urea Nitrogen 21 mg/dL (9-20); CRP < 0.5 mg/dL (<1.0); Calcium 9.1 mg/dL (8.4-10.2); Carbon Dioxide 25 mmol/L (22-30); Chloride 103 mmol/L (98-107); Estimated Glomerular Filt Rate > 60; Glucose 127 mg/dL (65-110); Osmolality Calculated 291 mOsm/kg (285-295); Potassium 3.9 mmol/L (3.4-5.0); Sodium 138 mmol/L (137-145); Total Protein 6.4 g/dL (6.3-8.2)
[2025-06-18 09:16] LABS: Hemoglobin A1C 6.3 % (<5.7)
[2025-06-18 10:58] LABS: Cholesterol 112 mg/dL (0-200); HDL Direct 58 mg/dL; Triglycerides 88 mg/dL (<150)
[2025-06-18 11:30] LABS: Prostate Specific Antigen 0.5 ng/mL (< OR = 4.0)
== END 2025-06-18 08:31 | disposition home or self-care (01) ==
PROVIDERS: Nurse Practitioner; PCP Internal Medicine; Visit Provider Internal Medicine Gastroenterology
DX: Z12.5 Encounter for screening for malignant neoplasm of prostate (principal); E11.9 Type 2 diabetes mellitus without complications; E78.5 Hyperlipidemia, unspecified; K50.113 Crohn's disease of large intestine with fistula; Z79.899 Other long term (current) drug therapy
CPT/HCPCS: 36415; 80053; 80061; 82306; 83036; 84153; 85025; 86140; G0103